=== PATIENT | male | born 1945 | race Caucasian/White ===

== ENCOUNTER 2018-10-30 13:07 | Inpatient (IN) | payer MEDICARE ==
[2018-10-30 14:28] LABS: #Basophils 0.1 thou/uL (0.0-0.2); #Eosinphils 0.1 thou/uL (0.0-0.7); #Lymphocytes 2.3 thou/uL (1.20-3.40); #Monocytes 0.6 thou/uL (0.11-0.59); #Neutrophils 4.8 thou/uL (1.40-6.50); %Basophils 0.7 % (0.0-1.0); %Eosinophils 1.3 % (0.0-10.0); %Lymphocytes 29.3 % (21.0-51.0); %Monocytes 7.9 % (0.0-10.0); %Neutrophils 60.8 % (42.0-75.0); Mean Corpuscular HGB CONC 34.6 g/dL (32.0-36.0); Mean Corpuscular Hemoglobin 33.1 pg (27.0-31.0); Mean Corpuscular Volume 95.7 fL (78.0-98.0); Mean Platelet Volume 8.9 fL (7.4-10.4); Platelet Count 188 thou/uL (130-400); RBC Distribution Width 12.6 % (11.5-14.5); Red Blood Cell (RBC) Count 3.92 mill/uL (4.70-6.10); White Blood Cell (WBC) Count 7.8 thou/uL (4.8-10.8)
--- NOTE | 2018-10-30 14:28 | RAD ---
CHEST 2 VIEWS: Date: 10/30/18 HISTORY: Acid reflux. Chest pain. COMPARISON: None. FINDINGS: There is some scarring in both lower lobes with increased peripheral pleural fat, likely chronic in n ature. Mild pulmonary venous congestion and cephalization of the pulmonary vasculature. Heart size is enlarged. Multiple midline sternotomy wires. Bones are demineralized with multiple Schmorl's nodes throughout the thoracic spine. There is cement throughout multiple lumbar spine compression deformities. IMPRESSION: Mild pulmonary venous congestion and cardiomegaly. POS: HOME
[2018-10-30 14:55] LABS: ALT (SGPT) 38 U/L (8-55); AST (SGOT) 23 U/L (5-34); Albumin 4.1 g/dL (3.4-4.8); Alkaline Phosphatase 52 U/L (40-150); Anion Gap 11 mmol/L (10-20); BUN (Urea Nitrogen) 17 mg/dL (8.4-25.7); Bilirubin, Total 0.4 mg/dL (0.2-1.2); Calc. Creatinine Clearance 0 mL/min (70-130); Carbon Dioxide 28 mmol/L (23-31); Chloride 106 mmol/L (98-107); Estimated GFR-MDRD 87; Globulin 2.5 g/dL (2.4-3.5); Glucose 90 mg/dL (83-110); Potassium 3.7 mmol/L (3.5-5.1); Protein, Total 6.6 g/dL (5.8-8.1); Sodium 141 mmol/L (136-145)
[2018-10-30] MEDS ORDERED: Aspirin 325 MG TAB ONE (15:16)
[2018-10-30] MEDS ORDERED: Enoxaparin Sodium 80 MG/0.8 ML SYRINGE ONE (15:16)
[2018-10-30] MEDS ORDERED: Nitroglycerin 2% Ointment 1 INCH/1 GM Packet ONE (15:16)
[2018-10-30 15:20] LABS: CKMB 2.9 ng/mL (0-6.6)
[2018-10-30 18:25] LABS: Critical Call Chem Troponin I RESULT DECREASING; Troponin I 0.352 ng/mL (< 0.028)
[2018-10-30 20:53] LABS: Troponin I 0.397 ng/mL (< 0.028)
[2018-10-30 20:55] VITALS: BMI 36.0
[2018-10-30] MEDS ORDERED: Aspirin 325 MG TAB PO SCH (21:00)
[2018-10-30] MEDS ORDERED: clonazePAM 1 MG TAB PO SCH (21:30)
[2018-10-30] MEDS ORDERED: DULoxetine 60 MG CAP PO SCH (21:30)
[2018-10-30] MEDS ORDERED: Nitroglycerin 2% Ointment 1 INCH/1 GM Packet TOP SCH (23:59)
[2018-10-31] MEDS ORDERED: Ondansetron ODT 4 MG TAB PO PRN (00:26)
[2018-10-31] MEDS ORDERED: Nitroglycerin 0.4 MG TAB (25 Tab Bottle) SL PRN ×2 (00:26)
[2018-10-31] MEDS ORDERED: traMADol HCl 50 MG TAB PO PRN (00:26)
[2018-10-31] MEDS ORDERED: hydrALAZINE 20 MG/ML VIAL SLOW IVP PRN (00:26)
[2018-10-31] MEDS ORDERED: Acetaminophen 500 MG TAB PO PRN (00:26)
[2018-10-31] MEDS ORDERED: Ondansetron PF 4 MG/2 ML Vial IVP PRN (00:26)
[2018-10-31] MEDS ORDERED: Calcium Carbonate 500 MG ChewTAB PO PRN (00:26)
[2018-10-31] MEDS ORDERED: Aspirin 325 mg Enteric Coated Tablet PO SCH (00:45)
--- NOTE | 2018-10-31 01:33 | HP ---
PRIMARY CARE PROVIDER: Arsenio Forte. CHIEF COMPLAINT: Reflux and burning in the chest. HISTORY OF PRESENT ILLNESS: This is a 73-year-old male, who presents to [facility] Emergency Department complaining of burning in his chest over the last 3 days. The patient denied any recent travel history, direct trauma or family members with similar symptoms. The patient does admit to history of reflux as well as arthritis, taking multiple pain medications in addition to nonsteroidal anti-inflammatory medication. The patient states this did not alleviate his symptoms and became concerned when the burning was constant. The patient also stated the pain in his chest was approximately 4/10, nonradiating without shortness of breath. The patient does admit to history of coronary artery disease, status post coronary artery bypass grafting in 2004. The patient admits to daily aspirin therapy and has been compliant with his regimen. The patient admits to some increased lower extremity swelling and general fatigue. In the emergency room, the patient underwent general metabolic screening showing evidence of elevated troponin I ranging between 0.352 to 0.397. The patient received aspirin 325 mg, Lovenox 1 mg/kg subcutaneously x1 dose, and transdermal nitroglycerin. The patient was transferred to the telemetry unit for further evaluation. PAST MEDICAL HISTORY: 1. Coronary artery disease. 2. Gastroesophageal reflux. 3. Peripheral neuropathy. 4. History of CVA with chronic expressive dysphasia. 5. Hyperlipidemia. 6. Hypertension. 7. HIV positive on chronic antiretroviral therapy. PAST SURGICAL HISTORY: 1. Status post coronary artery bypass grafting, 2004. 2. Status post appendectomy. CURRENT MEDICATIONS: 1. Abacavir/dolutegravir/lamivudine one tablet p.o. daily. 2. Acyclovir 1200 mg p.o. b.i.d. 3. Alendronate 35 mg p.o. q.7 days. 4. Amlodipine 10 mg p.o. daily. 5. Vitamin C 500 mg p.o. daily. 6. Enteric-coated aspirin 325 mg p.o. daily. 7. Dulcolax 5 mg p.o. daily. 8. Multivitamin 1 tablet p.o. daily. 9. Clonazepam 1 mg p.o. daily. 10. Diclofenac 75 mg p.o. b.i.d. 11. Cymbalta 60 mg p.o. b.i.d. 12. Fenofibrate 45 mg p.o. daily. 13. Gabapentin 3200 mg p.o. t.i.d. 14. Lisinopril 20 mg p.o. b.i.d. 15. Toprol-XL 100 mg p.o. b.i.d. 16. Minoxidil 10 mg p.o. daily. 17. Omeprazole 40 mg p.o. daily. 18. Flomax 0.4 mg p.o. daily. 19. Tramadol 50 mg p.o. t.i.d. p.r.n. ALLERGIES: TO STATINS AND SULFA. FAMILY HISTORY: Positive for hypertension and coronary artery disease. SOCIAL HISTORY: Resides in [facility] with his sister. Originally from [place]. No current alcohol, tobacco, or illicit drug use. Remote history of tobacco use. REVIEW OF SYSTEMS: CONSTITUTIONAL: Negative for weight loss or gain, ability to conduct usual activities. SKIN: Negative for rash, itching. EYES: Negative for double vision, pain. ENT/MOUTH: Negative for nose bleeding, neck stiffness, pain, tenderness. CARDIOVASCULAR: Negative for palpitations, dyspnea on exertion, orthopnea. RESPIRATORY: Negative for shortness of breath, wheezing, cough, hemoptysis, fever or night sweats. GASTROINTESTINAL: Negative for poor appetite, abdominal pain, heartburn, nausea, vomiting, constipation, or diarrhea. GENITOURINARY: Negative for urgency, frequency, dysuria, nocturia. MUSCULOSKELETAL: Negative for pain, swelling. NEUROLOGIC/PSYCHIATRIC: Negative for anxiety, depression. ALLERGY/IMMUNOLOGIC: Negative for skin rash, bleeding tendency. Otherwise negative except as stated per HPI. PHYSICAL EXAMINATION: VITAL SIGNS: On admission, blood pressure 188/97, pulse 91, respiratory rate 18, temperature 97.6 degrees Fahrenheit, O2 saturation 96% on room air. GENERAL APPEARANCE: This is a 73-year-old male, alert and oriented x3, pleasant, smiling, in no acute distress. HEENT: Pupils are equal, round, reactive to light and accommodation. Extraocular muscles are intact. No scleral icterus. No conjunctival injection. Nares patent. OP is clear. Teeth in fair repair. NECK: Supple. No cervical adenopathy. No thyromegaly. No carotid bruits. No JVD appreciated. Cervical spine with full active and passive range of motion. No meningeal signs noted. CHEST: Lungs are clear to auscultation bilaterally. CARDIOVASCULAR: S1-S2 without noted murmur, rub, or gallop. Previous coronary artery bypass grafting sternal scar intact. ABDOMEN: Rounded, soft, nontender, and nondistended. Bowel sounds are positive in all 4 quadrants. There is no hepatosplenomegaly. No abdominal bruits. No rebound or guarding appreciated. EXTREMITIES: Warm and dry with fair turgor. Mild pitting edema to the right lower extremity. Pulses palpable distally at the dorsalis pedis, posterior tibial, and popliteal arteries bilaterally. Capillary refill less than 2 seconds. NEUROLOGIC: Expressive dysphasia, mild. Not observed ambulatory during this exam. The rest of the cranial nerves 2 through 12 are grossly intact. PERTINENT LAB AND X-RAY FINDINGS: Complete metabolic profile within normal limits. Troponin I ranged between 0.352 to 0.397. BNP 162. CBC showed a white blood cell count of 7.8, hemoglobin 13, hematocrit 38, platelet count 188 with normal differential. Portable chest x-ray dated 10/30/2018, showed mild pulmonary venous vascular prominence. EKG dated 10/30/2018 by my interpretation shows sinus mechanism with heart rates in the 70s. Attenuated R-waves noted in the precordial leads. Normal axis. ST-T wave depression noted in leads V5 and V6. ASSESSMENT AND PLAN: 1. Non-ST elevation myocardial infarction. The patient will be admitted to the telemetry unit. Continue aspirin 325 mg daily. Lovenox initiated in the emergency room. Continue transdermal nitroglycerin. Check 2D transthoracic echocardiogram in the a.m. Consult Cardiology Service for further evaluation and consideration of left heart catheterization. Check fasting lipid profile in the a.m. 2. Coronary artery disease. See #1 above. 3. Hypertension. Resume home blood pressure regimen and monitor clinical response. P.r.n. hydralazine IV for systolic greater than or equal to 170. 4. Human immunodeficiency virus infection, chronic and stable. Resume anti-retroviral therapy. 5. Hyperlipidemia. Check fasting lipid profile in the a.m. Continue fenofibrate 45 mg p.o. daily. 6. Gastroesophageal reflux. Continue Pepcid 20 mg p.o. b.i.d. 7. Prophylaxis. SCDs while in bed. Pepcid 20 mg p.o. b.i.d. N.p.o. after midnight. 8. Code status is do not attempt resuscitation confirmed with the patient. Surrogate medical decision maker is the patient's sister. Job ID: [id number]
[2018-10-31 05:54] LABS: Anion Gap 11 mmol/L (10-20); BUN (Urea Nitrogen) 13 mg/dL (8.4-25.7); Calc. Creatinine Clearance 93 mL/min (70-130); Calcium 9.5 mg/dL (7.8-10.44); Carbon Dioxide 28 mmol/L (23-31); Chloride 105 mmol/L (98-107); Estimated GFR-MDRD 89; Glucose 124 mg/dL (83-110); Potassium 3.9 mmol/L (3.5-5.1); Sodium 140 mmol/L (136-145)
[2018-10-31 06:18] LABS: Eosinophils 1 % (0-10); Hemoglobin 13.3 g/dL (14.0-18.0); Hypochromia SLIGHT = 6-15 cells (100X) (0-5/hpf); Lymphocytes 21 % (21-51); MDiff Complete? YES; Mean Corpuscular HGB CONC 32.6 g/dL (32.0-36.0); Mean Corpuscular Hemoglobin 31.5 pg (27.0-31.0); Mean Corpuscular Volume 96.5 fL (78.0-98.0); Monocytes 4 % (0-10); Neutrophil 71 % (42-75); Platelet Count 203 thou/uL (130-400); Platelet Morphology Comment Appears Adequate; RBC Distribution Width 12.6 % (11.5-14.5); Reactive Lymphocytes 3 % (0-10); Red Blood Cell (RBC) Count 4.22 mill/uL (4.70-6.10); White Blood Cell (WBC) Count 7.4 thou/uL (4.8-10.8)
[2018-10-31] MEDS ORDERED: Clopidogrel Bisulfate 300 MG TAB PO SCH (09:00)
[2018-10-31] MEDS ORDERED: Prevnar 13-Val Conj/PF 0.5 ML SYRINGE IM ONE (09:00)
[2018-10-31] MEDS ORDERED: Fenofibrate 48 MG TAB PO SCH (09:00)
[2018-10-31] MEDS: clonazePAM 1 MG TAB PO SCH (09:12)
[2018-10-31] MEDS: Bisacodyl 5 MG TAB PO SCH (09:12)
[2018-10-31] MEDS: Amlodipine 10 MG TAB PO SCH (09:12)
[2018-10-31] MEDS: Tamsulosin HCl 0.4 MG CAP PO SCH (09:12)
[2018-10-31] MEDS: Aspirin 325 mg Enteric Coated Tablet PO SCH (09:12)
[2018-10-31] MEDS: Lisinopril 20 MG TAB PO SCH ×2 (09:13→20:19)
[2018-10-31] MEDS: Famotidine 20 MG TAB PO SCH ×2 (09:13→20:20)
[2018-10-31] MEDS: Ascorbic Acid 500 mg Chewable Tablet PO SCH (09:13)
--- NOTE | 2018-10-31 10:19 | CON ---
DATE OF CONSULTATION: 10/31/2018 REASON FOR CONSULTATION: Non-ST elevation myocardial infarction. HISTORY OF PRESENT ILLNESS: Mr. Rosales is a 73-year-old gentleman. The patient has a history of coronary artery bypass grafting in [place], he says in 2004. He does not know how many bypasses were done. The patient states he had stenting done prior to the bypass surgery that were unsuccessful he tells me. The patient came to the hospital here with chest pain at rest, found to have slight increase in cardiac enzymes as will be outlined below. He has continued to have chest pain off and on. The patient has also had a previous stroke, he tells me about five years ago he has expressive aphasia, which is not complete. He is able to express itself to some degree, but has quite a bit of difficulty. His receptive function appears adequate with conversing with him today. PAST MEDICAL HISTORY: Other past history, the patient states that he has history of HIV infection. He is on suppressive medicine for that. He says he has been on these medicines for now 30 years. SOCIAL HISTORY: He says he lives alone. His sister lives in town, but the patient tells me that he lives in apartment by himself. The patient does not use tobacco. ALLERGIES: HE REPORTS TO STATINS, SULFA, AND TRIMETHAPHAN. MEDICATIONS: At home he takes, 1. Aspirin. 2. He is not on statin. 3. He takes acyclovir. 4. Medicine for HIV. 5. Gabapentin, large doses. 6. Lisinopril 20 mg twice a day. 7. Minoxidil. 8. Fenofibrate 45 mg a day. REVIEW OF SYSTEMS: CONSTITUTIONAL: No significant weight gain or loss. VISION: No changes. HEARING: No changes. PULMONARY: No cough or wheezing. GASTROINTESTINAL: No nausea, vomiting, or diarrhea. SKIN: No rashes. NEUROLOGIC: No unilateral weakness or numbness. PSYCHIATRIC: No unusual depression or anxiety. HEMATOLOGIC: No unusual bruising. GENITOURINARY: No burning urination. PHYSICAL EXAMINATION: GENERAL: This is a pleasant 73-year-old gentleman, does look older than his age of 73. VITAL SIGNS: His blood pressure 157/82. Pulse 78 and it is regular. LUNGS: Clear. CARDIAC: Normal S1. Normal S2. I do not hear murmur, rub, or gallop. ABDOMEN: Soft and nontender. EXTREMITIES: Warm and dry. No clubbing or cyanosis. There is no edema. He has good popliteal pulses bilaterally. Good femoral pulses bilaterally. LABORATORY STUDIES: Hemoglobin is 13.3. Peak troponin was 0.397. Potassium is 3.9. Creatinine is 0.85. EKG, normal sinus rhythm, some nonspecific T-wave changes and ST changes in V5 and V6. Chest x-ray does not show evidence of congestive heart failure. ASSESSMENT: 1. Mje-UJ-ztrtwsrst myocardial infarction. 2. Bypass surgery, he tells me 14 years ago. He does not know how many bypasses were done. 3. Stent implantation prior to bypass surgery. 4. Previous stroke with expressive aphasia. He is able to communicate adequately, but does have some difficulty with speaking. He seems to understand well. 5. Chronic HIV infection. 6. Hypertension. 7. Hyperlipidemia. 8. Statin intolerance. PLAN: I had discussed cardiac catheterization. The patient states that he absolutely does not wish to have resuscitation in the event of cardiac arrest. I asked him if we decided to go to the medical laboratory technical officer, but he agreed to suspend that and at least resuscitate while in the medical laboratory technical officer, he says no. The patient wishes medical therapy; did discuss the option of catheterization, but he says that he does not wish to be resuscitated under any conditions. He is reluctant to consider cardiac catheterization. Therefore, we will try to treat him medically; 1. We will give him a short term of enoxaparin. 2. Add Plavix. 3. Nitrates. 4. Check lipids. 5. We will add amlodipine. 6. Echocardiogram to be done. We will follow with you. Job ID: [id number]
[2018-10-31] MEDS: Gabapentin 400 MG CAP PO SCH ×3 (10:43→20:17)
[2018-10-31] MEDS: Minoxidil 10 MG TAB PO SCH (10:44)
[2018-10-31] MEDS: LAMIVUDI PO SCH (10:45)
[2018-10-31] MEDS: DOLUTEGRAVIR PO SCH (10:45)
[2018-10-31] MEDS: Acyclovir 400 mg Tablet PO SCH ×2 (10:45→20:21)
[2018-10-31] MEDS: ABACAVIR PO SCH (10:45)
[2018-10-31] MEDS: Enoxaparin Sodium 80 MG/0.8 ML SYRINGE SC SCH ×2 (11:38→20:21)
[2018-10-31] MEDS: Nitroglycerin 2% Ointment 1 INCH/1 GM Packet TOP SCH ×2 (11:38→20:17)
[2018-10-31] MEDS: DULoxetine 60 MG CAP PO SCH ×2 (11:43→20:21)
--- NOTE | 2018-10-31 18:26 | PDOC.PN ---
- Subjective Encounter Start Date: 10/31/18 Encounter Start Time: 13:45 Feels fine. Says he has some "arthritis" pain in the sternum that is sore to touch. Otherwise feels fine. - Objective Resuscitation Status - Order Detail: 10/31/18 00:27 Resuscitation Status Routine Resuscitation Status: DNAR: NO Resuscitation Discussed with: Confirmed with patient Vital Signs & Weight: Vital Signs (12 hours) Temp Pulse Resp BP Pulse Ox 10/31/18 15:32 97.5 F L 74 20 176/91 H 95 10/31/18 12:00 98.6 F 83 17 159/73 H 94 L 10/31/18 09:12 78 10/31/18 07:50 97.8 F 78 18 157/82 H 92 L Weight Weight 184 lb 6.4 oz I&O: 10/30/18 10/31/18 11/01/18 06:59 06:59 06:59 Intake Total 420 Output Total 5 Balance 415 Result Diagrams: 10/31/18 05:11 10/31/18 05:11 Phys Exam - Physical Examination Constitutional: NAD Respiratory: no wheezing, no rales, no rhonchi Cardiovascular: RRR, no significant murmur, no rub Gastrointestinal: soft, non-tender, no distention, positive bowel sounds Musculoskeletal: no edema Neurological: non-focal Mild expressive aphasia, but communicative. Psychiatric: normal affect, A&O x 3 Dx/Plan (1) NSTEMI (non-ST elevated myocardial infarction) Code(s): I21.4 - NON-ST ELEVATION (NSTEMI) MYOCARDIAL INFARCTION Status: Acute (2) CAD (coronary artery disease) Code(s): I25.10 - ATHSCL HEART DISEASE OF [place] CORONARY ARTERY W/O ANG PCTRS Status: Acute (3) History of CVA (cerebrovascular accident) Code(s): Z86.73 - PRSNL HX OF TIA (TIA), AND CEREB INFRC W/O RESID DEFICITS Status: Acute (4) HIV (human immunodeficiency virus infection) Code(s): B20 - HUMAN IMMUNODEFICIENCY VIRUS [HIV] DISEASE Status: Acute (5) Hypertension Code(s): I10 - ESSENTIAL (PRIMARY) HYPERTENSION Status: Acute - Plan * Discussed with Dr. Suarez. * Patient is declining cath. * Says he has lived with HIV for over 30 years and has done well. Does not wish to do anything aggressive to prolong his life. * Continue medical management. * Lovenox, Plavix, Statin.
[2018-10-31] MEDS ORDERED: Ezetimibe 10 MG TAB PO SCH (21:00)
[2018-11-01 03:40] LABS: Calc. Creatinine Clearance 96 mL/min (70-130); Estimated GFR-MDRD Greater than 90
[2018-11-01 03:47] LABS: Hemoglobin 12.6 g/dL (14.0-18.0); Platelet Count 190 thou/uL (130-400)
[2018-11-01] MEDS: Nitroglycerin 2% Ointment 1 INCH/1 GM Packet TOP SCH ×2 (03:47→10:43)
[2018-11-01 04:00] LABS: Cardiac Risk 7.7 (Less than 4.5)
[2018-11-01] MEDS: Minoxidil 10 MG TAB PO SCH (08:51)
[2018-11-01] MEDS: Enoxaparin Sodium 80 MG/0.8 ML SYRINGE SC SCH (08:51)
[2018-11-01] MEDS: Acyclovir 400 mg Tablet PO SCH (08:51)
[2018-11-01] MEDS: DULoxetine 60 MG CAP PO SCH (08:51)
[2018-11-01] MEDS: Famotidine 20 MG TAB PO SCH (08:52)
[2018-11-01] MEDS: Tamsulosin HCl 0.4 MG CAP PO SCH (08:52)
[2018-11-01] MEDS: Ascorbic Acid 500 mg Chewable Tablet PO SCH (08:52)
[2018-11-01] MEDS: Amlodipine 10 MG TAB PO SCH (08:52)
[2018-11-01] MEDS: Lisinopril 20 MG TAB PO SCH (08:52)
[2018-11-01] MEDS: clonazePAM 1 MG TAB PO SCH (08:52)
[2018-11-01] MEDS: Aspirin 325 mg Enteric Coated Tablet PO SCH (08:53)
[2018-11-01] MEDS: Gabapentin 400 MG CAP PO SCH (08:53)
[2018-11-01] MEDS: Bisacodyl 5 MG TAB PO SCH (08:53)
[2018-11-01] MEDS ORDERED: Clopidogrel Bisulfate 75 MG TAB PO SCH (09:00)
--- NOTE | 2018-11-01 10:07 | PRG ---
DATE OF SERVICE: 11/01/2018 SUBJECTIVE: Mr. Rosales is doing well. No further chest pain. OBJECTIVE: VITAL SIGNS: Blood pressure 142/66, followed by 170/76. LUNGS: Clear. CARDIAC: Normal S1 and normal S2. ABDOMEN: Soft and nontender. IMAGING STUDIES: Echocardiogram technically difficult, ejection fraction approximately 40% to 45%. ASSESSMENT: 1. Previous bypass surgery. 2. Human immunodeficiency virus positive, on suppressive medications. 3. Status post [id number] myocardial infarction. PLAN: 1. The patient wishes do not resuscitate status. Does not wish to have any maneuvers to prolong his life in the event of cardiac arrest. 2. Client's cardiac catheterization planned to go on aspirin. 3. Plavix 75 mg a day. 4. Try again with Crestor. He previously had muscle weakness, but we will try 5 mg a day and stop the fenofibrate. 5. Come back and see us in the office in 2 to 3 weeks. Bring all medications. Job ID: [id number]
[2018-11-01] MEDS: ABACAVIR PO SCH (10:15)
[2018-11-01] MEDS: DOLUTEGRAVIR PO SCH (10:15)
[2018-11-01] MEDS: LAMIVUDI PO SCH (10:15)
[2018-11-01 11:58] VITALS: BP 119/59; TEMP 98
--- NOTE | 2018-11-02 00:12 | DIS ---
DATE OF ADMISSION: 10/30/2018 DATE OF DISCHARGE: 11/01/2018 DISCHARGE DIAGNOSES: 1. Non ST-elevation myocardial infarction. 2. Coronary artery disease. 3. History of cerebrovascular accident. 4. HIV positivity. 5. Hypertension. HISTORY OF PRESENT ILLNESS: The patient is a 73-year-old male, who presented via the emergency department with the complaint of left-sided chest pain. The patient was known to have prior cardiac history with stents and then bypass surgery. He had slightly elevated troponin and some nonspecific T-wave changes and ST changes in V5 and V6. HOSPITAL COURSE: The patient was admitted to the hospital on telemetry. He was continued on aspirin. He had Lovenox initiated in the emergency department along with some transdermal nitroglycerin. Cardiology was consulted and echocardiogram was performed. The echocardiogram ultimately showed suboptimal study with an EF around 40% to 50%. There was [id number] dilatation of the left atrium. Dr. Suarez saw the patient in consultation, recommended heart catheterization. However, the patient declined, indicated that he had been living with chronic HIV for over 30 years, had been through a number of cardiac procedures and had a prior CVA with some mild expressive aphasia and was not interested in pursuing anything further at this time. Therefore, he had Plavix added to his regimen and was continued on the nitrates. The patient appeared to have some tenderness in the left chest area which he attributed to arthritis, but otherwise no new problems and felt generally well. Vital signs remained relatively stable. His blood pressure was somewhat erratic and never got exceedingly high. With that, the patient was felt to be stable for discharge to home. His peak troponin was 0.397. Also of note, the patient did have cholesterol panel which included triglycerides of 309, total cholesterol of 245 , LDL 151, and HDL 32. The patient was noted to be allergic to statins, which apparently did cause some myositis. However, Cardiology felt it would be worth giving him a trial on low-dose Crestor given his underlying NH, his coronary disease and his cholesterol panel, noting that the brakes were not found to be of benefit for coronary artery disease. PHYSICAL EXAMINATION: VITAL SIGNS: On the day of discharge, temperature is 98.0, pulse 75, respirations 16, O2 saturation 95% on room air, BP was 119/59. GENERAL: The patient was awake and alert, very pleasant, cooperative. HEART: Regular rate and rhythm without murmurs. LUNGS: Clear. ABDOMEN: Benign. EXTREMITIES: Had no cyanosis, clubbing, or edema. DISPOSITION: The patient is discharged in stable condition to home. DIET: He is to have a heart healthy diet. ACTIVITY: Activity level is as tolerated. MEDICATIONS: He will be on Plavix 75 mg daily, rosuvastatin 5 mg at bedtime, gabapentin continues home dose. He was on omeprazole previously. However, given the potential interaction with Plavix, I did clarify subsequent to discharge to the patient's sister that we will hold the omeprazole for now and have him on Pepcid. He will continue his: 1. Diclofenac. 2. Misoprostol. 3. Tramadol. 4. Dulcolax. 5. Aspirin, but he will reduce the dose to 81 mg for now. Continue with, 1. Vitamin C. 2. Cymbalta. 3. Calcium. 4. Tamsulosin. 5. Alendronate. 6. Clonazepam. 7. Minoxidil. 8. Metoprolol. 9. Lisinopril. 10. Amlodipine 10 mg daily has been added. 11. I will continue the Triumeq and acyclovir. FOLLOWUP: He is to follow up with Dr. Nat Olivia on 11/07/2018 at 12:45. He will follow up with Dr. Suarez on 11/15/2018 at 9:30 a.m. The patient can return to the hospital should he have any problems prior to that time. Time spent in discharge activities, including face to face time with the patient , was 33 min. Job ID: [id number] [facility]
[2018-11-02] MEDS ORDERED: Aspirin 325 mg Enteric Coated Tablet PO SCH (09:00)
[2018-11-02] MEDS ORDERED: Enoxaparin Sodium 40 MG/0.4 ML SYRINGE SC SCH (09:00)
--- NOTE | 2018-11-02 13:04 | EKG ---
Test Reason : Blood Pressure : / mmHG Vent. Rate : 074 BPM Atrial Rate : 074 BPM P-R Int : 148 ms QRS Dur : 098 ms QT Int : 398 ms P-R-T Axes : 046 012 116 degrees QTc Int : 441 ms Normal sinus rhythm Left atrial enlargement Cannot rule out Anterior infarct , age undetermined Abnormal ECG Confirmed by TRISHA PORTILLO, MELISSA Lala ([id number]), newspaper copy editor BUFFY TURPIN ([id number]) on 11/02/2018 1:03:47 PM Referred By: Confirmed By:MELISSA RICO MD
[2018-11-02] MEDS ORDERED: Rosuvastatin 5 MG TAB PO SCH (21:00)
== END 2018-11-01 13:32 | disposition home or self-care (01) | DRG 282 ==
LOC: ERS 13:07 → 2NO 17:16
PROVIDERS: ADMIT Internal Medicine; ATTEND Internal Medicine
DX: I21.4 Non-ST elevation (NSTEMI) myocardial infarction (principal); I25.10 Atherosclerotic heart disease of native coronary artery without angina pectoris; Z21 Asymptomatic human immunodeficiency virus [HIV] infection status; K21.9 Gastro-esophageal reflux disease without esophagitis; G62.9 Polyneuropathy, unspecified; M19.90 Unspecified osteoarthritis, unspecified site; E78.5 Hyperlipidemia, unspecified; I10 Essential (primary) hypertension; Z66 Do not resuscitate; M60.9 Myositis, unspecified; I69.321 Dysphasia following cerebral infarction; Z95.1 Presence of aortocoronary bypass graft; Z79.01 Long term (current) use of anticoagulants
CPT/HCPCS: 36415; 71046; 80048; 80053; 80061; 82553; 82565; 83880; 84484; 85007; 85014; 85018; 85025; 85027; 85049; 90471; 90670; 93005; 93306; 93798; 94760; 96372; G0009; J1650

== ENCOUNTER 2018-12-30 10:14 | Inpatient (IN) | payer MEDICARE ==
[2018-12-30 11:03] LABS: #Eosinphils 0.1 thou/uL (0.0-0.7); #Lymphocytes 1.8 thou/uL (1.20-3.40); #Monocytes 0.6 thou/uL (0.11-0.59); #Neutrophils 6.8 thou/uL (1.40-6.50); %Basophils 0.1 % (0.0-1.0); %Eosinophils 0.5 % (0.0-10.0); %Lymphocytes 19.3 % (21.0-51.0); Hemoglobin 13.3 g/dL (14.0-18.0); Mean Corpuscular HGB CONC 34.6 g/dL (32.0-36.0); Mean Corpuscular Hemoglobin 32.9 pg (27.0-31.0); Mean Corpuscular Volume 95.2 fL (78.0-98.0); Mean Platelet Volume 9.2 fL (7.4-10.4); Platelet Count 182 thou/uL (130-400); RBC Distribution Width 12.7 % (11.5-14.5); Red Blood Cell (RBC) Count 4.03 mill/uL (4.70-6.10); White Blood Cell (WBC) Count 9.1 thou/uL (4.8-10.8)
--- NOTE | 2018-12-30 11:17 | RAD ---
PA AND LATERAL CHEST: Date: 12/30/18 COMPARISON: 10/30/18 study. HISTORY: Chest pain. FINDINGS: Heart size within normal limits. There are postop sternotomy changes. Lungs show some chronic change. No focal infiltrates. Vertebroplasty changes of the lumbar spine are incidentally noted. IMPRESSION: Chronic lung change. No acute process. POS: OFF
[2018-12-30 11:30] LABS: ALT (SGPT) 34 U/L (8-55); AST (SGOT) 31 U/L (5-34); Albumin 4.3 g/dL (3.4-4.8); Alkaline Phosphatase 54 U/L (40-150); Anion Gap 14 mmol/L (10-20); BUN (Urea Nitrogen) 15 mg/dL (8.4-25.7); Bilirubin, Total 0.5 mg/dL (0.2-1.2); CK (CPK) 576 U/L (30-200); Calc. Creatinine Clearance 0 mL/min (70-130); Calcium 9.9 mg/dL (7.8-10.44); Carbon Dioxide 26 mmol/L (23-31); Chloride 105 mmol/L (98-107); Estimated GFR-MDRD 68; Globulin 2.5 g/dL (2.4-3.5); Glucose 143 mg/dL (83-110); Potassium 3.7 mmol/L (3.5-5.1); Protein, Total 6.8 g/dL (5.8-8.1); Sodium 141 mmol/L (136-145)
[2018-12-30 11:52] LABS: CKMB 9.5 ng/mL (0-6.6)
[2018-12-30] MEDS ORDERED: Aspirin Chewable 81 MG TAB ONE (12:22)
[2018-12-30] MEDS ORDERED: Nitroglycerin 2% Ointment 1 INCH/1 GM Packet ONE (12:22)
[2018-12-30 12:56] LABS: Prothrombin Time 13.2 SEC (12.0-14.7)
[2018-12-30] MEDS ORDERED: Heparin 25,000 units/D5W 500 ML IV SCH (13:00)
[2018-12-30] MEDS ORDERED: Heparin 10,000 UNITS/ 10 ML VIAL SLOW IVP SCH (13:00)
[2018-12-30] MEDS ORDERED: Enoxaparin Sodium 80 MG/0.8 ML SYRINGE ONE (13:52)
[2018-12-30 14:16] LABS: Troponin I 0.271 ng/mL (< 0.028)
[2018-12-30] MEDS ORDERED: Communication Order-Pharmacy FS SCH (15:30)
[2018-12-30 15:41] VITALS: BMI 27.9
[2018-12-30 17:10] LABS: Troponin I 0.275 ng/mL (< 0.028)
[2018-12-30] MEDS ORDERED: traMADol HCl 50 MG TAB PO PRN (18:38)
--- NOTE | 2018-12-30 18:45 | CON ---
DATE OF CONSULTATION: 12/30/2018 HISTORY OF PRESENT ILLNESS: The patient is a 73-year-old gentleman, who presents for evaluation of chest discomfort. The patient has a previous history of coronary artery disease. He underwent coronary artery bypass graft surgery in 2004. The patient also has a history of cerebrovascular accident. The patient was admitted with unstable angina in October of this year. The patient declined to undergo an invasive evaluation and was placed on medical therapy. He was doing well until a few days ago when he developed recurrent chest discomfort. He has been using nitroglycerin tablets to relieve his chest discomfort. He presented to the emergency room for further evaluation. The patient denies having any present chest discomfort. PAST MEDICAL HISTORY: Significant for; 1. Coronary artery disease. 2. Cerebrovascular accident. 3. Hypertension. 4. Dyslipidemia. PAST SURGICAL HISTORY: He has had; 1. Coronary artery bypass surgery. 2. Appendectomy. 3. Tonsillectomy. SOCIAL HISTORY: Nonsmoker. ALLERGIES: HE IS ALLERGIC TO SULFA DRUGS. MEDICATIONS: See nursing list. FAMILY HISTORY: Positive family history of coronary artery disease. REVIEW OF SYSTEMS: Ten-point system otherwise unremarkable. PHYSICAL EXAMINATION: GENERAL: Well-developed gentleman, in no acute distress. VITAL SIGNS: Blood pressure was 168/85. NECK: No jugular venous distention. LUNGS: Clear to auscultation. HEART: Regular rate and rhythm. Normal S1, S2. No murmurs. ABDOMEN: Nondistended. EXTREMITIES: Showed no edema. VASCULAR: Radial pulses are 2+. LABORATORY AND DIAGNOSTIC RESULTS: White blood cell count 9.1, hemoglobin 13.3, hematocrit 38.4, platelets 182. Sodium is 141, potassium 3.7, chloride 105, bicarbonate 26, BUN 15, creatinine 1.0. Troponin was 0.271. EKG revealed normal sinus rhythm with ST-T wave abnormalities suggestive of possible ischemia. IMPRESSION AND PLAN: 1. Unstable angina. 2. History of coronary artery bypass surgery. 3. History of cerebrovascular accident. 4. HIV positive. 5. Dyslipidemia. 6. Hypertension. This gentleman presents with unstable angina. The patient has received a dose of Lovenox. The patient will be scheduled to undergo a cardiac catheterization tomorrow. The risks involved with the procedure including KS, bleeding, stroke, cardiac arrhythmia, and cardiac were explained to the patient. The patient understands these risks and wishes to proceed. Job ID: [id number]
[2018-12-30] MEDS: DULoxetine 60 MG CAP PO SCH (20:14)
[2018-12-30] MEDS: Rosuvastatin 5 MG TAB PO SCH (20:14)
[2018-12-30] MEDS: Minoxidil 2.5 MG TAB PO SCH (20:15)
[2018-12-30] MEDS: Lisinopril 20 MG TAB PO SCH (20:15)
[2018-12-30] MEDS: Acyclovir 400 mg Tablet PO SCH (20:15)
--- NOTE | 2018-12-30 20:40 | PDOC.EVN ---
Event Note - Event Note Event Note: Pharmacy called to discuss patient's gabapentin dose. Confirmed that he takes 3200 mg TID; will continue at this time, given risk of seizure / withdrawal symptoms.
[2018-12-30] MEDS ORDERED: Gabapentin 400 MG CAP PO SCH (21:00)
--- NOTE | 2018-12-30 22:43 | HP ---
PRIMARY CARE PHYSICIAN: Dr. Nat Olivia CHIEF COMPLAINT: Chest pain. HISTORY OF PRESENT ILLNESS: Mr. Rosales is a 73-year-old man with past medical history of CVA and coronary artery disease, status post CABG in 2015, hypertension, hyperlipidemia, who had presented to [facility] earlier today after he has been having worsening chest pain. This started about 4 days ago. He had also reported some diaphoresis and shortness of breath, which symptoms were relieved by nitroglycerin. His serial troponins were trended and found to be indeterminate at 0.27 and CK-MB elevated at 9.5. The patient was treated with nitroglycerin, aspirin and Lovenox in the ED, which had helped the symptoms. Cardiology Services were then consulted and planned for heart catheterization in the morning. Currently, the patient denies fever, chills, headache, blurred vision, dizziness, chest pain, palpitation, shortness of breath, abdominal pain, nausea, vomiting, or any change in his stool. REVIEW OF SYSTEMS: All other systems reviewed and found to be negative unless mentioned in HPI. PAST MEDICAL HISTORY: Hypertension, hyperlipidemia, coronary artery disease, history of CVA, and HIV. PAST SURGICAL HISTORY: Coronary artery bypass graft surgery, appendectomy. PSYCHIATRIC HISTORY: None. SOCIAL HISTORY: Denies alcohol, tobacco, or illicit drug use. He is a former smoker and quit more than 10 years ago. KNOWN ALLERGIES: Statin and sulfa. CURRENT HOME MEDICATIONS: 1. Triumeq one tablet oral daily. 2. Acyclovir 400 mg p.o. b.i.d. 3. Alendronate 35 mg p.o. q.7 days. 4. Amlodipine 10 mg oral daily. 5. Aspirin 81 mg daily. 6. Dulcolax 5 mg oral daily. 7. Clonazepam 1 mg p.o. daily. 8. Clopidogrel 75 mg oral daily. 9. Diclofenac 75 mg oral b.i.d. 10. Duloxetine 60 mg oral b.i.d. 11. Gabapentin 3200 mg p.o. t.i.d. 12. Lisinopril 20 mg oral b.i.d. 13. Metoprolol 100 mg oral b.i.d. 14. Minoxidil 2.5 mg p.o. b.i.d. 15. Rosuvastatin 5 mg oral at bedtime. 16. Tamsulosin 0.4 mg daily. 17. Tramadol 50 mg p.o. t.i.d. PHYSICAL EXAMINATION: VITAL SIGNS: BP 157/76, pulse 70, respiration 18, temperature 98.9, O2 saturation 95% on room air. GENERAL: The patient is awake, alert, and oriented x3, currently lying comfortably in bed and in no acute distress. HEENT: Atraumatic, normocephalic. Pupils are round and reactive to light. Extraocular muscles intact. Moist mucous membranes noted. NECK: Soft and supple. Trachea midline. CARDIOVASCULAR: Positive S1 and S2. Regular rate and rhythm. No murmur auscultated. RESPIRATORY: Clear to auscultation bilaterally. No wheezes, rales, or rhonchi. ABDOMEN: Soft, nontender. Bowel sounds present. MUSCULOSKELETAL: Strength 5+ bilateral upper and lower extremities. Moves all extremities equal. Pedal and radial pulses 2+ bilaterally. No edema noted. NEUROLOGIC: Cranial nerves 2 through 12 grossly intact. No focal deficits noted. Speech intact and normal. Gait not assessed. SKIN: Warm, dry, and intact. No rashes. No ulceration noted. PSYCHIATRIC: Good mood and affect. LABORATORY DATA: WBC 9.1, RBC 4.03, hemoglobin 13.3, hematocrit 38.4, platelet 182. Sodium 141, potassium 3.7, anion gap 14, BUN 15, creatinine 1.07, estimated GFR 68, glucose 143, CK-MB 9.5, troponin 0.278 to 0.275. DIAGNOSTIC IMAGING: Two-view chest x-ray showed chronic lung changes with no acute process noted. ASSESSMENT AND PLAN: 1. Unstable angina. The patient was treated with Lovenox, aspirin and nitroglycerin, which had helped with the symptoms. He will be maintained on nitroglycerin as needed and Cardiology consult as we planned for cardiac catheterization in the a.m. 2. Hypertension. Continue home regimen and monitor blood pressure and other vital signs closely. 3. Hyperlipidemia. Continue home statin. 4. History of coronary artery disease, status post coronary artery bypass graft. As above, cardiology is consulted and we will plan for cardiac catheterization in the morning. 5. History of human immunodeficiency virus. Continue home regimen. 6. Deep venous thrombosis and gastrointestinal prophylaxis. 7. Code status, full code. DISPOSITION: Pending further workup and clinical findings. Surrogate decision maker is his sister, Katerina Leary. Job ID: [id number]
[2018-12-31] MEDS: Lisinopril 20 MG TAB PO SCH ×2 (06:00→20:30)
[2018-12-31] MEDS: Amlodipine 10 MG TAB PO SCH (06:00)
[2018-12-31] MEDS: Tamsulosin HCl 0.4 MG CAP PO SCH (06:00)
[2018-12-31] MEDS: DULoxetine 60 MG CAP PO SCH ×2 (06:00→20:30)
[2018-12-31] MEDS: DOLUTEGRAVIR PO SCH (06:01)
[2018-12-31] MEDS: LAMIVUDI PO SCH (06:01)
[2018-12-31] MEDS: clonazePAM 1 MG TAB PO SCH (06:01)
[2018-12-31] MEDS: Aspirin 81 mg Enteric Coated Tablet PO SCH (06:01)
[2018-12-31] MEDS: Minoxidil 2.5 MG TAB PO SCH ×2 (06:01→20:30)
[2018-12-31] MEDS: ABACAVIR PO SCH (06:01)
[2018-12-31] MEDS: Acyclovir 400 mg Tablet PO SCH ×2 (06:02→20:30)
[2018-12-31] MEDS ORDERED: Lidocaine 1% (PF) 30 ML VIAL ONE (06:34)
[2018-12-31] MEDS ORDERED: Gabapentin 300 MG CAP PO SCH (09:00)
[2018-12-31] MEDS ORDERED: Midazolam HCl 2 mg/2 ml Vial ONE (09:03)
[2018-12-31] MEDS ORDERED: Fentanyl 100 MCG/2 ML VIAL ONE (09:03)
[2018-12-31] MEDS ORDERED: Nitroglycerin 4.9 GM Bottle ONE (10:12)
[2018-12-31] MEDS ORDERED: TICAGRELOR 90 MG TABLET ONE (10:25)
[2018-12-31] MEDS ORDERED: Nitroglycerin 2% Ointment 1 INCH/1 GM Packet ONE (10:30)
[2018-12-31] MEDS ORDERED: Sodium Chloride 0.9% 200 ML IV PRN (10:31)
[2018-12-31] MEDS ORDERED: Nitroglycerin 0.4 MG TAB (25 Tab Bottle) SL PRN (10:31)
[2018-12-31] MEDS ORDERED: Acetaminophen/Codeine 30-300mg Tablet PO PRN ×2 (10:31)
--- NOTE | 2018-12-31 12:36 | PDOC.HOSPP ---
- Subjective Encounter Date: 12/31/18 Encounter Time: 11:00 Subjective: had cath this am, no current chest pain sister at bedside - Objective Vital Signs & Weight: Vital Signs (12 hours) Temp Pulse Resp BP BP BP Pulse Ox 12/31/18 12:00 98.1 F 60 18 110/59 L 93 L 12/31/18 10:31 98.4 F 63 16 113/58 L 96 12/31/18 08:00 98.7 F 65 16 127/60 98 12/31/18 06:00 86 161/79 H 12/31/18 04:00 98 F 86 18 161/79 H 93 L Weight Weight 177 lb 12.8 oz I&O: 12/30/18 12/31/18 01/01/19 06:59 06:59 06:59 Intake Total 360 240 Balance 360 240 Result Diagrams: 12/30/18 10:31 12/30/18 10:31 Hospitalist ROS - Medication Medications: Active Medications Generic Name Dose Route Start Last Admin Trade Name Freq PRN Reason Stop Dose Admin Acyclovir 400 mg 12/30/18 21:00 12/31/18 06:02 Zovirax PO 400 mg BID VAL Administration Amlodipine Besylate 10 mg 12/31/18 09:00 12/31/18 06:00 Norvasc PO 10 mg DAILY VAL Administration Aspirin 81 mg 12/31/18 09:00 12/31/18 06:01 Ecotrin PO 81 mg DAILY VAL Administration Clonazepam 1 mg 12/31/18 09:00 12/31/18 06:01 Klonopin PO 1 mg DAILY VAL Administration Duloxetine HCl 60 mg 12/30/18 21:00 12/31/18 06:00 Cymbalta PO 60 mg BID VAL Administration Lisinopril 20 mg 12/30/18 21:00 12/31/18 06:00 Zestril PO 20 mg BID VAL Administration Metoprolol Succinate 100 mg 12/30/18 21:00 12/31/18 06:00 Toprol Xl PO 100 mg BID VAL Administration Minoxidil 2.5 mg 12/30/18 21:00 12/31/18 06:01 Minoxidil PO 2.5 mg BID VAL Administration (Abacavir/ 1 each 12/31/18 09:00 12/31/18 06:01 Dolutegravir/ PO 1 each Lamivudi [Triumeq] 1 DAILY VAL Administration Tablet) Rosuvastatin Calcium 5 mg 12/30/18 21:00 12/30/18 20:14 Crestor PO 5 mg HS VAL Administration Tamsulosin HCl 0.4 mg 12/31/18 09:00 12/31/18 06:00 Flomax PO 0.4 mg DAILY VAL Administration - Exam General Appearance: awake alert Eye: PERRL, anicteric sclera ENT: no oropharyngeal lesions, moist mucosa Neck: supple, no JVD Heart: RRR, no murmur Respiratory: no wheezes, no rales Gastrointestinal: soft, non-tender, normal bowel sounds Extremities: no cyanosis, no edema Neurological: cranial nerve grossly intact, no focal deficits Psychiatric: normal affect, A&O x 3 Hosp A/P (1) Unstable angina Status: Acute (2) CAD (coronary artery disease) Code(s): I25.10 - ATHSCL HEART DISEASE OF [place] CORONARY ARTERY W/O ANG PCTRS Status: Acute Qualifiers: [place] vs. transplanted heart: [place] heart Associated angina: with unstable angina (3) Dyslipidemia Code(s): E78.5 - HYPERLIPIDEMIA, UNSPECIFIED Status: Chronic (4) HIV (human immunodeficiency virus infection) Code(s): B20 - HUMAN IMMUNODEFICIENCY VIRUS [HIV] DISEASE Status: Chronic Qualifiers: HIV symptom status: asymptomatic Qualified Code(s): Z21 - Asymptomatic human immunodeficiency virus [HIV] infection status (5) History of CVA (cerebrovascular accident) Code(s): Z86.73 - PRSNL HX OF TIA (TIA), AND CEREB INFRC W/O RESID DEFICITS Status: Chronic (6) Hypertension Code(s): I10 - ESSENTIAL (PRIMARY) HYPERTENSION Status: Chronic Qualifiers: Hypertension type: essential hypertension Qualified Code(s): I10 - Essential (primary) hypertension - Plan had cath this am, shows diffuse disease, d/w , for med mgmt meds will be optimized, tika currently on toprol xl, lisinopril, crestor low dose, norvasc, stepan is on very high toxic dose of gabapentin which is prescribed by his ID specialist per sister has severe peripheral neuropathy which apparently has not responded to other agents per sister hemostable dc plan in am has given updates to sister and patient about cath results
[2018-12-31] MEDS: Bisacodyl 5 MG TAB PO SCH (13:44)
[2018-12-31] MEDS ORDERED: Iopamidol 370 76% 100 ML VIAL ONE (15:58)
[2018-12-31] MEDS ORDERED: Iopamidol 370 76% 50 ML VIAL FS ONE (15:58)
[2018-12-31] MEDS: Gabapentin 400 MG CAP PO SCH ×2 (16:38→20:30)
[2018-12-31] MEDS: Rosuvastatin 5 MG TAB PO SCH (20:30)
[2018-12-31] MEDS: TICAGRELOR 90 MG TABLET PO SCH (20:30)
[2019-01-01] MEDS: Aspirin 81 mg Enteric Coated Tablet PO SCH (09:22)
[2019-01-01] MEDS: Amlodipine 10 MG TAB PO SCH (09:22)
[2019-01-01] MEDS: Acyclovir 400 mg Tablet PO SCH (09:22)
[2019-01-01] MEDS: DULoxetine 60 MG CAP PO SCH (09:22)
[2019-01-01] MEDS: Gabapentin 400 MG CAP PO SCH (09:22)
[2019-01-01] MEDS: clonazePAM 1 MG TAB PO SCH (09:22)
[2019-01-01] MEDS: LAMIVUDI PO SCH (09:23)
[2019-01-01] MEDS: Minoxidil 2.5 MG TAB PO SCH (09:23)
[2019-01-01] MEDS: Tamsulosin HCl 0.4 MG CAP PO SCH (09:23)
[2019-01-01] MEDS: Lisinopril 20 MG TAB PO SCH (09:23)
[2019-01-01] MEDS: DOLUTEGRAVIR PO SCH (09:23)
[2019-01-01] MEDS: ABACAVIR PO SCH (09:23)
[2019-01-01] MEDS: TICAGRELOR 90 MG TABLET PO SCH (09:23)
[2019-01-01] MEDS: Bisacodyl 5 MG TAB PO SCH (09:24)
[2019-01-01 12:28] VITALS: BP 118/64; TEMP 98
[2019-01-06] MEDS ORDERED: Non-Formulary Item 1 EACH (Alendronate Sodium [Alendronate Sodium] 35 MG) PO SCH (09:00)
== END 2019-01-01 13:40 | disposition home or self-care (01) | DRG 287 ==
LOC: ERS 10:14 → ERHOLD 12:58 → 2NO 15:18
PROVIDERS: ADMIT Internal Medicine Nephrology; ATTEND Internal Medicine Nephrology
PROC: 4A023N7 Measurement of Cardiac Sampling and Pressure, Left Heart, Percutaneous Approach (ICD-10-PCS; principal; 2018-12-30)
PROC: B2111ZZ Fluoroscopy of Multiple Coronary Arteries using Low Osmolar Contrast (ICD-10-PCS; 2018-12-30)
PROC: B2151ZZ Fluoroscopy of Left Heart using Low Osmolar Contrast (ICD-10-PCS; 2018-12-30)
DX: I25.110 Atherosclerotic heart disease of native coronary artery with unstable angina pectoris (principal); Z86.73 Personal history of transient ischemic attack (TIA), and cerebral infarction without residual deficits; Z95.1 Presence of aortocoronary bypass graft; E78.5 Hyperlipidemia, unspecified; Z21 Asymptomatic human immunodeficiency virus [HIV] infection status; Z88.8 Allergy status to other drugs, medicaments and biological substances; Z88.2 Allergy status to sulfonamides; Z90.49 Acquired absence of other specified parts of digestive tract; Z79.82 Long term (current) use of aspirin; Z79.899 Other long term (current) drug therapy
CPT/HCPCS: 36415; 71046; 76942; 80053; 82550; 82553; 84484; 85025; 85610; 93005; 93458; 94760; 96372; 99152; 99153; C1769; J1644; J1650; J2001; J2250; J3010

== ENCOUNTER 2019-01-17 18:20 | Inpatient (IN) | payer MEDICARE ==
[2019-01-17] MEDS ORDERED: Heparin 1,000 UNITS/ML VIAL ONE (18:32)
[2019-01-17] MEDS ORDERED: Heparin 25,000 units/D5W 500 ML ONE (18:32)
[2019-01-17] MEDS ORDERED: Nitroglycerin 50 MG/250 ML BOT 250 ML ONE (18:40)
[2019-01-17 18:41] LABS: #Eosinphils 0.1 thou/uL (0.0-0.7); #Lymphocytes 1.7 thou/uL (1.20-3.40); #Monocytes 0.6 thou/uL (0.11-0.59); %Basophils 0.4 % (0.0-1.0); %Eosinophils 0.6 % (0.0-10.0); %Lymphocytes 16.6 % (21.0-51.0); %Monocytes 5.9 % (0.0-10.0); %Neutrophils 76.4 % (42.0-75.0); Hemoglobin 14.6 g/dL (14.0-18.0); Mean Corpuscular HGB CONC 33.5 g/dL (32.0-36.0); Mean Corpuscular Hemoglobin 32.8 pg (27.0-31.0); Mean Corpuscular Volume 97.9 fL (78.0-98.0); Mean Platelet Volume 8.8 fL (7.4-10.4); Platelet Count 219 thou/uL (130-400); RBC Distribution Width 12.7 % (11.5-14.5); Red Blood Cell (RBC) Count 4.44 mill/uL (4.70-6.10); White Blood Cell (WBC) Count 10.4 thou/uL (4.8-10.8)
[2019-01-17 18:44] LABS: INR-International Normal Ratio 0.9; PTT 24.3 SEC (22.9-36.1)
--- NOTE | 2019-01-17 18:48 | RAD ---
EXAM: Portable chest INDICATIONS: Chest pain. STEMI COMPARISON: 12/30/2018 FINDINGS: Borderline cardiomegaly with postop sternotomy change. Vascular congestion. Mild perihilar haziness suggesting edema. No significant effusion. IMPRESSION: Mild vascular congestion and perihilar haziness suggesting edema. Other infiltrate not ex cluded.
[2019-01-17 18:58] LABS: ALT (SGPT) 122 U/L (8-55); AST (SGOT) 152 U/L (5-34); Albumin 4.3 g/dL (3.4-4.8); Alkaline Phosphatase 63 U/L (40-110); Anion Gap 16 mmol/L (10-20); BUN (Urea Nitrogen) 19 mg/dL (8.4-25.7); Bilirubin, Total 0.3 mg/dL (0.2-1.2); Calc. Creatinine Clearance 0 mL/min (70-130); Calcium 9.3 mg/dL (7.8-10.44); Carbon Dioxide 21 mmol/L (23-31); Chloride 108 mmol/L (98-107); Estimated GFR-MDRD 63; Globulin 3.2 g/dL (2.4-3.5); Glucose 169 mg/dL (83-110); Protein, Total 7.5 g/dL (5.8-8.1); Sodium 141 mmol/L (136-145)
[2019-01-17 19:13] LABS: CKMB 5.2 ng/mL (0-6.6)
[2019-01-17] MEDS ORDERED: Furosemide 40 MG/4 ML VIAL ONE (19:14)
[2019-01-17] MEDS ORDERED: Ondansetron ODT 4 MG TAB PO PRN (19:44)
[2019-01-17] MEDS ORDERED: Ondansetron PF 4 MG/2 ML Vial IVP PRN (19:44)
[2019-01-17] MEDS ORDERED: Acetaminophen 325 MG TAB PO PRN (19:44)
[2019-01-17] MEDS ORDERED: Nitroglycerin 50 MG/250 ML BOT 250 ML IVPB SCH (22:15)
[2019-01-17 22:28] LABS: Troponin I 1.572 ng/mL (< 0.028)
[2019-01-18 01:37] LABS: Troponin I 2.814 ng/mL (< 0.028)
[2019-01-18] MEDS: Heparin 10,000 UNITS/ 10 ML VIAL SLOW IVP SCH ×3 (01:43→19:59)
[2019-01-18] MEDS ORDERED: traMADol HCl 50 MG TAB PO PRN (01:57)
[2019-01-18] MEDS ORDERED: Nitroglycerin 0.4 MG TAB (25 Tab Bottle) SL PRN (01:57)
[2019-01-18 05:36] LABS: #Eosinphils 0.1 thou/uL (0.0-0.7); #Lymphocytes 1.6 thou/uL (1.20-3.40); #Monocytes 0.8 thou/uL (0.11-0.59); %Basophils 0.1 % (0.0-1.0); %Eosinophils 0.6 % (0.0-10.0); %Lymphocytes 16.5 % (21.0-51.0); %Monocytes 7.9 % (0.0-10.0); %Neutrophils 74.8 % (42.0-75.0); Hemoglobin 12.8 g/dL (14.0-18.0); Mean Corpuscular HGB CONC 33.4 g/dL (32.0-36.0); Mean Corpuscular Hemoglobin 32.7 pg (27.0-31.0); Mean Corpuscular Volume 97.9 fL (78.0-98.0); Mean Platelet Volume 8.9 fL (7.4-10.4); Platelet Count 183 thou/uL (130-400); RBC Distribution Width 12.6 % (11.5-14.5); Red Blood Cell (RBC) Count 3.92 mill/uL (4.70-6.10); White Blood Cell (WBC) Count 9.4 thou/uL (4.8-10.8)
[2019-01-18 05:59] LABS: Anion Gap 13 mmol/L (10-20); BUN (Urea Nitrogen) 15 mg/dL (8.4-25.7); Calc. Creatinine Clearance 89 mL/min (70-130); Calcium 8.8 mg/dL (7.8-10.44); Carbon Dioxide 24 mmol/L (23-31); Chloride 108 mmol/L (98-107); Estimated GFR-MDRD 84; Glucose 125 mg/dL (83-110); Potassium 3.6 mmol/L (3.5-5.1); Sodium 141 mmol/L (136-145)
[2019-01-18] MEDS ORDERED: Bisacodyl 5 MG TAB PO SCH (09:00)
[2019-01-18] MEDS ORDERED: Rosuvastatin 10 MG TAB PO SCH (09:00)
[2019-01-18] MEDS ORDERED: Morphine 4 MG/ML VIAL ONE (10:41)
[2019-01-18] MEDS: Acyclovir 400 mg Tablet PO SCH ×2 (10:53→21:23)
[2019-01-18] MEDS: Aspirin 81 mg Enteric Coated Tablet PO SCH (10:54)
[2019-01-18] MEDS: Calcium Carbonate + Vit D 1 TAB PO SCH (10:54)
[2019-01-18] MEDS: Ascorbic Acid 500 mg Chewable Tablet PO SCH (10:54)
[2019-01-18] MEDS: Amlodipine 10 MG TAB PO SCH (10:54)
[2019-01-18] MEDS: Lisinopril 20 MG TAB PO SCH ×2 (10:54→21:21)
[2019-01-18] MEDS: DULoxetine 60 MG CAP PO SCH ×2 (10:54→21:20)
[2019-01-18] MEDS: TICAGRELOR 90 MG TABLET PO SCH ×2 (10:55→21:21)
[2019-01-18] MEDS: Minoxidil 2.5 MG TAB PO SCH ×2 (10:55→21:22)
[2019-01-18] MEDS: Tamsulosin HCl 0.4 MG CAP PO SCH (10:55)
[2019-01-18] MEDS: clonazePAM 1 MG TAB PO SCH (11:00)
[2019-01-18] MEDS: Enoxaparin Sodium 40 MG/0.4 ML SYRINGE SC SCH (11:01)
--- NOTE | 2019-01-18 11:03 | PDOC.CPN ---
- Subjective Date: 01/18/19 Time: 12:54 Interval history: 01/23 CP earleir Now minimal to no symptoms - Objective Allergies/Adverse Reactions: Allergies Allergy/AdvReac Type Severity Reaction Status Date / Time [id number]-Hte Reductase Allergy Verified 01/17/19 21:44 Inhibitor Sulfa (Sulfonamide Allergy Verified 01/17/19 21:44 Antibiotics) sulfamethoxazole Allergy Verified 01/17/19 21:44 [From Bactrim] trimethoprim [From Bactrim] Allergy Verified 01/17/19 21:44 Visit Medications: Current Medications Acetaminophen (Tylenol) 650 mg PO Q4H PRN PRN Reason: Headache/Fever/Mild Pain (1-3) Acyclovir (Zovirax) 400 mg PO BID [facility] Last Admin: 01/18/19 10:53 Dose: 400 mg Amlodipine Besylate (Norvasc) 10 mg PO DAILY [facility] Last Admin: 01/18/19 10:54 Dose: 10 mg Ascorbic Acid (Vitamin C) 500 mg PO DAILY [facility] Last Admin: 01/18/19 10:54 Dose: 500 mg Aspirin (Ecotrin) 81 mg PO DAILY [facility] Last Admin: 01/18/19 10:54 Dose: 81 mg Bisacodyl (Dulcolax) 5 mg PO DAILY [facility] Last Admin: 01/18/19 10:52 Dose: Not Given Calcium/Vitamin D (Caltrate 600 + Vit D) 1 tab PO DAILY [facility] Last Admin: 01/18/19 10:54 Dose: 1 tab Clonazepam (Klonopin) 1 mg PO DAILY [facility] Last Admin: 01/18/19 11:00 Dose: Not Given Diclofenac Sodium (Diclofenac Sodium) 75 mg PO BID [facility] Duloxetine HCl (Cymbalta) 60 mg PO BID [facility] Last Admin: 01/18/19 10:54 Dose: 60 mg Enoxaparin Sodium (Lovenox) 40 mg SC 0900 [facility] Last Admin: 01/18/19 11:01 Dose: Not Given Gabapentin (Neurontin) 3,200 mg PO TID [facility] Heparin Sodium (Porcine) (Heparin 1,000 Units/Ml (10 Ml)) 0 units SLOW IVP WILLCALL [facility] Last Admin: 01/18/19 07:26 Dose: 40,000 unit Nitroglycerin/Dextrose (Nitroglycerin 50 Mg/250 Ml Bot) 250 mls @ 0 mls/hr IVPB INF [facility]; Protocol Heparin Sodium/Dextrose (Heparin 25,000 Units/D5w 500 Ml) 500 mls @ 0 mls/hr IV INF [facility]; Protocol Lisinopril (Zestril) 20 mg PO BID [facility] Last Admin: 01/18/19 10:54 Dose: 20 mg Metoprolol Succinate (Toprol Xl) 100 mg PO BID [facility] Last Admin: 01/18/19 10:55 Dose: 100 mg Minoxidil (Minoxidil) 2.5 mg PO BID [facility] Last Admin: 01/18/19 10:55 Dose: 2.5 mg Nitroglycerin (Nitrostat) 0.4 mg SL Q5MIN PRN PRN Reason: Chest Pain Ondansetron HCl (Zofran Odt) 4 mg PO Q6H PRN PRN Reason: Nausea/Vomiting Ondansetron HCl (Zofran) 4 mg IVP Q6H PRN PRN Reason: Nausea/Vomiting Pantoprazole Sodium (Protonix) 40 mg PO DAILY [facility] Last Admin: 01/18/19 10:55 Dose: 40 mg Abacavir/Dolutegravir/Lamivudi [Triumeq] 1 Tablet 0 each PO DAILY [facility] Rosuvastatin Calcium (Crestor) 10 mg PO DAILY [facility] Last Admin: 01/18/19 10:52 Dose: Not Given Sodium Chloride (Flush - Normal Saline) 10 ml IVF Q12HR [facility] Last Admin: 01/18/19 10:53 Dose: Not Given Sodium Chloride (Flush - Normal Saline) 10 ml IVF PRN PRN PRN Reason: Saline Flush Tamsulosin HCl (Flomax) 0.4 mg PO DAILY [facility] Last Admin: 01/18/19 10:55 Dose: 0.4 mg Ticagrelor (Brilinta) 90 mg PO BID [facility] Last Admin: 01/18/19 10:55 Dose: 90 mg Tramadol HCl (Ultram) 50 mg PO TID PRN PRN Reason: Pain Vital Signs & Weight: Vital Signs Temp Pulse Pulse Ox 01/18/19 07:51 97 01/18/19 07:00 97.8 F 01/18/19 04:00 98.1 F 96 01/18/19 03:53 98 01/18/19 03:10 76 01/18/19 00:00 97.6 F Weight 185 lb 3.013 oz - Physical Exam General: alert & oriented x3 HEENT: normocephaly Neck: no masses Cardiac: no murmur, regular rate, regular rhythm Lungs: normal exam Neuro: grossly intact Abdomen: soft Extremities: no edema Skin: rash Musculoskeletal: no pain - Labs Result Diagrams: 01/18/19 05:12 01/18/19 05:12 Troponin/CKMB CK-MB (CK-2) 5.2 ng/mL (0-6.6) 01/17/19 18:23 Troponin I 2.814 ng/mL (< 0.028) H* 01/18/19 00:39 - Assessment/Plan Assessment/Plan: Severe CAD with occluded LM, and 99% RCA with SVG to RCA present Very difficult situation On IV nitro and heparin RCA may be revascularized but pt currently with graft to the RCA. Symptoms likely related to diffuce ischemia with small distal LAD (80% stenosis ) and occulded Cx without graft and SVG rto RCA without coverage of the RPL Stent to RCA would be from ostium to distal region. No good landing zone distally given very small dital RCA into the RPL Long discussio with pt and sister. they are not interested in further intervention Understand his cardiac condition and would like meds only Add ranexa to IV nitro and heparin Agree with DNR, pt not interested in aggressive measures
[2019-01-18] MEDS: Gabapentin 400 MG CAP PO SCH ×3 (12:11→21:44)
--- NOTE | 2019-01-18 15:13 | PDOC.HOSPP ---
- Subjective Subjective: Says he is doing fine. He has resolved himself to the idea that the CAD is not amenable to intervention. He is completely comfortable with that. He had said the same thing last time I saw him here in the hospital. No pain now. - Objective Vital Signs & Weight: Vital Signs (12 hours) Temp Pulse Ox 01/18/19 12:00 98.3 F 01/18/19 07:51 97 01/18/19 07:00 97.8 F 01/18/19 04:00 98.1 F 96 01/18/19 03:53 98 Weight Weight 185 lb 3.013 oz Most Recent Monitor Data Heart Rate from ECG 86 NIBP 157/81 NIBP BP-Mean 106 Respiration from ECG 18 SpO2 100 I&O: 01/17/19 01/18/19 01/19/19 06:59 06:59 06:59 Intake Total 255.9 240 Output Total 1150 150 Balance -894.1 90 Result Diagrams: 01/18/19 05:12 01/18/19 05:12 Hospitalist ROS - Medication Medications: Active Medications Generic Name Dose Route Start Last Admin Trade Name Nitin PRN Reason Stop Dose Admin Acyclovir 400 mg 01/18/19 09:00 01/18/19 10:53 Zovirax PO 400 mg BID VAL Administration Amlodipine Besylate 10 mg 01/18/19 09:00 01/18/19 10:54 Norvasc PO 10 mg DAILY VAL Administration Ascorbic Acid 500 mg 01/18/19 09:00 01/18/19 10:54 Vitamin C PO 500 mg DAILY VAL Administration Aspirin 81 mg 01/18/19 09:00 01/18/19 10:54 Ecotrin PO 81 mg DAILY VAL Administration Calcium/Vitamin D 1 tab 01/18/19 09:00 01/18/19 10:54 Caltrate 600 + Vit D PO 1 tab DAILY VAL Administration Clonazepam 1 mg 01/18/19 09:00 01/18/19 11:00 Klonopin PO Not Given DAILY VAL Diclofenac Sodium 75 mg 01/18/19 09:00 01/18/19 12:12 Diclofenac Sodium PO 75 mg BID VAL Administration Duloxetine HCl 60 mg 01/18/19 09:00 01/18/19 10:54 Cymbalta PO 60 mg BID VAL Administration Enoxaparin Sodium 40 mg 01/18/19 09:00 01/18/19 11:01 Lovenox SC Not Given 0900 [facility] Gabapentin 3,200 mg 01/18/19 09:00 01/18/19 12:11 Neurontin PO 3,200 mg TID VAL Administration Heparin Sodium (Porcine) 0 units 01/17/19 22:15 01/18/19 07:26 Heparin 1,000 Units/Ml (10 Ml) SLOW IVP 40,000 unit WILLCALL VAL Administration Lisinopril 20 mg 01/18/19 09:00 01/18/19 10:54 Zestril PO 20 mg BID VAL Administration Metoprolol Succinate 100 mg 01/18/19 09:00 01/18/19 10:55 Toprol Xl PO 100 mg BID VAL Administration Minoxidil 2.5 mg 01/18/19 09:00 01/18/19 10:55 Minoxidil PO 2.5 mg BID VAL Administration Pantoprazole Sodium 40 mg 01/18/19 09:00 01/18/19 10:55 Protonix PO 40 mg DAILY VAL Administration Sodium Chloride 10 ml 01/18/19 09:00 01/18/19 10:53 Flush - Normal Saline IVF Not Given Q12HR [facility] Tamsulosin HCl 0.4 mg 01/18/19 09:00 01/18/19 10:55 Flomax PO 0.4 mg DAILY [facility] Administration Ticagrelor 90 mg 01/18/19 09:00 01/18/19 10:55 Brilinta PO 90 mg BID VAL Administration - Exam General Appearance: NAD, awake alert Neck: supple, symmetric, no JVD, no thyromegaly, no lymphadenopathy, no carotid bruit Heart: RRR, no murmur, no gallops, no rubs, normal peripheral pulses Respiratory: CTAB, no wheezes, no rales, no ronchi, normal chest expansion, no tachypnea, normal percussion Gastrointestinal: soft, non-tender, non-distended, normal bowel sounds, no palpable masses, no hepatomegaly, no splenomegaly, no bruit Extremities: no cyanosis, no clubbing, no edema Skin: normal turgor, no lesions, no rashes Musculoskeletal: normal tone Psychiatric: normal affect, normal behavior, A&O x 3 Hosp A/P (1) CAD (coronary artery disease) Code(s): I25.10 - ATHSCL HEART DISEASE OF [place] CORONARY ARTERY W/O ANG PCTRS Status: Acute Qualifiers: [place] vs. transplanted heart: [place] heart Associated angina: with unstable angina (2) NSTEMI (non-ST elevated myocardial infarction) Code(s): I21.4 - NON-ST ELEVATION (NSTEMI) MYOCARDIAL INFARCTION Status: Acute (3) Dyslipidemia Code(s): E78.5 - HYPERLIPIDEMIA, UNSPECIFIED Status: Chronic (4) HIV (human immunodeficiency virus infection) Code(s): B20 - HUMAN IMMUNODEFICIENCY VIRUS [HIV] DISEASE Status: Chronic Qualifiers: HIV symptom status: asymptomatic Qualified Code(s): Z21 - Asymptomatic human immunodeficiency virus [HIV] infection status (5) History of CVA (cerebrovascular accident) Code(s): Z86.73 - PRSNL HX OF TIA (TIA), AND CEREB INFRC W/O RESID DEFICITS Status: Chronic (6) Hypertension Code(s): I10 - ESSENTIAL (PRIMARY) HYPERTENSION Status: Chronic Qualifiers: Hypertension type: essential hypertension Qualified Code(s): I10 - Essential (primary) hypertension - Plan He is doing fine. He understands that the CAD is not amenable to intervention. Continue with IV heparin and nitro. Will keep on these for 48 hours per Cards. Continue home meds otherwise.
[2019-01-18] MEDS: Heparin 25,000 units/D5W 500 ML IV SCH (16:05)
--- NOTE | 2019-01-18 20:37 | CON ---
DATE OF CONSULTATION: 01/18/2019 HISTORY OF PRESENT ILLNESS: Mr. Rosales is a pleasant gentleman, who has recently undergone cardiac catheterization (on 12/30). He had an occluded left main coronary. He had diffuse right coronary disease with a 90% mid lesion and ostial lesion and diffuse distal disease. He had a GARDNER graft to his LAD that was patent. He had a saphenous vein graft to his posterior descending artery that was patent. There were no other grafts identified. Medical management for his coronary artery disease was recommended. He presented with chest discomfort, was admitted to the critical care unit. He is pain-free by my consultation. The patient is a do not resuscitate patient now. PAST MEDICAL HISTORY: 1. Remarkable for hypertension. 2. History of CVA in the past. 3. History of coronary artery bypass grafting. 4. History of an appendectomy. 5. History of lipid disorder. 6. History of tonsillectomy. SOCIAL HISTORY: He is a nonsmoker, nondrinker, nondrug user. ALLERGIES: REPORTS ALLERGIES TO SULFA. FAMILY HISTORY: Positive for vascular disease. REVIEW OF SYSTEMS: 10-point review of systems completed, is negative. PHYSICAL EXAMINATION: GENERAL: Pleasant gentleman, in no distress. VITAL SIGNS: 152/92, heart rate 74, respiratory rate 17. EYES: Pupils are equal. Sclerae are anicteric. NECK: Supple. LUNGS: Clear. HEART: Regular rhythm. ABDOMEN: Soft and nontender. EXTREMITIES: Without clubbing, cyanosis, or edema. NEURO: Nonfocal. LABORATORY DATA: White count 9.4, hemoglobin 12.8, platelets 183. Electrolytes are unremarkable. Potassium is 3.6. Troponin peaked at 2.8 midnight last night. IMPRESSION: Coronary artery disease. It was felt not to be amenable to an operative procedure, percutaneous intervention. Medical management is recommended. He would probably be transferred out of the critical care unit. He remains pain free in the morning. This is a 70-minute consult, with greater than 50% of the time spent on the unit coordinating care. Job ID: [id number] MTDD
[2019-01-18] MEDS: Bisacodyl 5 MG TAB PO SCH (21:21)
[2019-01-18] MEDS: Rosuvastatin 10 MG TAB PO SCH (21:21)
--- NOTE | 2019-01-19 08:30 | PDOC.CPN ---
- Subjective Date: 01/19/19 Time: 11:40 Interval history: Doing very well. No comp,aints. On IV nitro and heparin - Objective Allergies/Adverse Reactions: Allergies Allergy/AdvReac Type Severity Reaction Status Date / Time [id number] Reductase Allergy Verified 01/17/19 21:44 Inhibitor Sulfa (Sulfonamide Allergy Verified 01/17/19 21:44 Antibiotics) sulfamethoxazole Allergy Verified 01/17/19 21:44 [From Bactrim] trimethoprim [From Bactrim] Allergy Verified 01/17/19 21:44 Visit Medications: Current Medications Acetaminophen (Tylenol) 650 mg PO Q4H PRN PRN Reason: Headache/Fever/Mild Pain (1-3) Acyclovir (Zovirax) 400 mg PO BID [facility] Last Admin: 01/18/19 21:23 Dose: 400 mg Amlodipine Besylate (Norvasc) 10 mg PO DAILY [facility] Last Admin: 01/18/19 10:54 Dose: 10 mg Ascorbic Acid (Vitamin C) 500 mg PO DAILY [facility] Last Admin: 01/18/19 10:54 Dose: 500 mg Aspirin (Ecotrin) 81 mg PO DAILY [facility] Last Admin: 01/18/19 10:54 Dose: 81 mg Bisacodyl (Dulcolax) 5 mg PO 2100 [facility] Last Admin: 01/18/19 21:21 Dose: 5 mg Calcium/Vitamin D (Caltrate 600 + Vit D) 1 tab PO DAILY [facility] Last Admin: 01/18/19 10:54 Dose: 1 tab Clonazepam (Klonopin) 1 mg PO DAILY [facility] Last Admin: 01/18/19 11:00 Dose: Not Given Diclofenac Sodium (Diclofenac Sodium) 75 mg PO BID [facility] Last Admin: 01/18/19 21:21 Dose: 75 mg Duloxetine HCl (Cymbalta) 60 mg PO BID [facility] Last Admin: 01/18/19 21:20 Dose: 60 mg Enoxaparin Sodium (Lovenox) 40 mg SC 0900 [facility] Last Admin: 01/18/19 11:01 Dose: Not Given Gabapentin (Neurontin) 3,000 mg PO TID [facility] Gabapentin (Neurontin) 200 mg PO TID [facility] Heparin Sodium (Porcine) (Heparin 1,000 Units/Ml (10 Ml)) 0 units SLOW IVP WILLCALL [facility] Last Admin: 01/18/19 19:59 Dose: 2,520 unit Nitroglycerin/Dextrose (Nitroglycerin 50 Mg/250 Ml Bot) 250 mls @ 0 mls/hr IVPB INF [facility]; Protocol Heparin Sodium/Dextrose (Heparin 25,000 Units/D5w 500 Ml) 500 mls @ 0 mls/hr IV INF [facility]; Protocol Last Admin: 01/18/19 16:05 Dose: 500 mls Lisinopril (Zestril) 20 mg PO BID [facility] Last Admin: 01/18/19 21:21 Dose: 20 mg Metoprolol Succinate (Toprol Xl) 100 mg PO BID [facility] Last Admin: 01/18/19 21:22 Dose: 100 mg Minoxidil (Minoxidil) 2.5 mg PO BID [facility] Last Admin: 01/18/19 21:22 Dose: 2.5 mg Nitroglycerin (Nitrostat) 0.4 mg SL Q5MIN PRN PRN Reason: Chest Pain Ondansetron HCl (Zofran Odt) 4 mg PO Q6H PRN PRN Reason: Nausea/Vomiting Ondansetron HCl (Zofran) 4 mg IVP Q6H PRN PRN Reason: Nausea/Vomiting Pantoprazole Sodium (Protonix) 40 mg PO DAILY [facility] Last Admin: 01/18/19 10:55 Dose: 40 mg Abacavir/Dolutegravir/Lamivudi [Triumeq] 600/50/300mg Tablet 0 each PO DAILY [facility] Ranolazine (Ranexa) 500 mg PO BID [facility] Last Admin: 01/18/19 21:20 Dose: 500 mg Rosuvastatin Calcium (Crestor) 10 mg PO 2100 [facility] Last Admin: 01/18/19 21:21 Dose: 10 mg Sodium Chloride (Flush - Normal Saline) 10 ml IVF Q12HR [facility] Last Admin: 01/18/19 21:23 Dose: Not Given Sodium Chloride (Flush - Normal Saline) 10 ml IVF PRN PRN PRN Reason: Saline Flush Tamsulosin HCl (Flomax) 0.4 mg PO DAILY [facility] Last Admin: 01/18/19 10:55 Dose: 0.4 mg Ticagrelor (Brilinta) 90 mg PO BID [facility] Last Admin: 01/18/19 21:21 Dose: 90 mg Tramadol HCl (Ultram) 50 mg PO TID PRN PRN Reason: Pain Vital Signs & Weight: Vital Signs Temp BP 01/19/19 08:00 97.7 F 01/19/19 04:00 97.8 F 01/19/19 00:00 98.4 F 01/18/19 21:21 122/70 Weight 183 lb 6.793 oz - Physical Exam General: alert & oriented x3 HEENT: normocephaly Neck: supple neck, no masses, no bruit Cardiac: no murmur, regular rate, regular rhythm Lungs: normal exam Neuro: grossly intact Extremities: no edema - Labs Result Diagrams: 01/18/19 05:12 01/18/19 05:12 Troponin/CKMB CK-MB (CK-2) 5.2 ng/mL (0-6.6) 01/17/19 18:23 Troponin I 2.814 ng/mL (< 0.028) H* 01/18/19 00:39 - Telemetry Sinus rhythms and dysrhythmias: sinus rhythm - Assessment/Plan Assessment/Plan: 01/20 REC Wean off nitro Change to patch if still with Sx keep heparin overnight Ranexa, BB, nitrates Anti-platelet Consider low dose xarelto 01/18 REC Severe CAD with occluded LM, and 99% RCA with SVG to RCA present Very difficult situation On IV nitro and heparin RCA may be revascularized but pt currently with graft to the RCA. Symptoms likely related to diffuce ischemia with small distal LAD (80% stenosis ) and occulded Cx without graft and SVG rto RCA without coverage of the RPL Stent to RCA would be from ostium to distal region. No good landing zone distally given very small dital RCA into the RPL Long discussio with pt and sister. they are not interested in further intervention Understand his cardiac condition and would like meds only Add ranexa to IV nitro and heparin Agree with DNR, pt not interested in aggressive measures
[2019-01-19] MEDS: DOLUTEGRAVIR PO SCH ×2 (08:42→09:00)
[2019-01-19] MEDS: ABACAVIR PO SCH ×2 (08:42→09:00)
[2019-01-19] MEDS: LAMIVUDI PO SCH ×2 (08:42→09:00)
[2019-01-19] MEDS: Acyclovir 400 mg Tablet PO SCH ×2 (08:45→20:56)
[2019-01-19] MEDS: Calcium Carbonate + Vit D 1 TAB PO SCH (08:46)
[2019-01-19] MEDS: Aspirin 81 mg Enteric Coated Tablet PO SCH (08:46)
[2019-01-19] MEDS: Ascorbic Acid 500 mg Chewable Tablet PO SCH (08:46)
[2019-01-19] MEDS: Lisinopril 20 MG TAB PO SCH ×2 (08:47→20:56)
[2019-01-19] MEDS: Tamsulosin HCl 0.4 MG CAP PO SCH (08:48)
[2019-01-19] MEDS: DULoxetine 60 MG CAP PO SCH ×2 (08:50→20:56)
[2019-01-19] MEDS: TICAGRELOR 90 MG TABLET PO SCH ×2 (08:51→20:57)
[2019-01-19] MEDS: Minoxidil 2.5 MG TAB PO SCH ×2 (08:51→20:56)
[2019-01-19] MEDS: Amlodipine 10 MG TAB PO SCH (08:52)
[2019-01-19] MEDS: Enoxaparin Sodium 40 MG/0.4 ML SYRINGE SC SCH (08:53)
[2019-01-19] MEDS: clonazePAM 1 MG TAB PO SCH (08:53)
[2019-01-19] MEDS: Gabapentin 300 MG CAP PO SCH ×3 (08:54→20:53)
[2019-01-19] MEDS: Gabapentin 100 MG CAP PO SCH ×3 (08:55→20:53)
[2019-01-19] MEDS: Heparin 25,000 units/D5W 500 ML IV SCH (13:29)
--- NOTE | 2019-01-19 15:57 | PDOC.HOSPP ---
- Subjective Subjective: Doing well. No pain. In talking with him and his sister, he was actually given an Rx for Ranexa on Sunday. He never took any because he developed symptoms and came to the hospital. His sister has been giving them to him and he has been taking them since yesterday. - Objective Vital Signs & Weight: Vital Signs (12 hours) Temp Pulse BP Pulse Ox 01/19/19 12:00 97.7 F 98 01/19/19 08:52 65 177/86 H 01/19/19 08:47 177/86 H 01/19/19 08:00 97.7 F 95 01/19/19 04:00 97.8 F Weight Weight 183 lb 6.793 oz Most Recent Monitor Data Heart Rate from ECG 63 NIBP 146/75 NIBP BP-Mean 98 Respiration from ECG 13 SpO2 95 I&O: 01/18/19 01/19/19 01/20/19 06:59 06:59 06:59 Intake Total 255.9 1752.1 390 Output Total 1150 825 400 Balance -894.1 927.1 -10 Result Diagrams: 01/18/19 05:12 01/18/19 05:12 Hospitalist ROS - Medication Medications: Active Medications Generic Name Dose Route Start Last Admin Trade Name Freq PRN Reason Stop Dose Admin Acyclovir 400 mg 01/18/19 09:00 01/19/19 08:45 Zovirax PO 400 mg BID VAL Administration Amlodipine Besylate 10 mg 01/18/19 09:00 01/19/19 08:52 Norvasc PO 10 mg DAILY [facility] Administration Ascorbic Acid 500 mg 01/18/19 09:00 01/19/19 08:46 Vitamin C PO 500 mg DAILY [facility] Administration Aspirin 81 mg 01/18/19 09:00 01/19/19 08:46 Ecotrin PO 81 mg DAILY [facility] Administration Bisacodyl 5 mg 01/18/19 21:00 01/18/19 21:21 Dulcolax PO 5 mg 2100 VAL Administration Calcium/Vitamin D 1 tab 01/18/19 09:00 01/19/19 08:46 Caltrate 600 + Vit D PO 1 tab DAILY [facility] Administration Clonazepam 1 mg 01/18/19 09:00 01/19/19 08:53 Klonopin PO Not Given DAILY VAL Diclofenac Sodium 75 mg 01/18/19 09:00 01/19/19 08:43 Diclofenac Sodium PO 75 mg BID VAL Administration Duloxetine HCl 60 mg 01/18/19 09:00 01/19/19 08:50 Cymbalta PO 60 mg BID VAL Administration Gabapentin 3,000 mg 01/19/19 09:00 01/19/19 15:06 Neurontin PO 3,000 mg TID VAL Administration Gabapentin 200 mg 01/19/19 09:00 01/19/19 15:07 Neurontin PO 200 mg TID VAL Administration Heparin Sodium (Porcine) 0 units 01/17/19 22:15 01/18/19 19:59 Heparin 1,000 Units/Ml (10 Ml) SLOW IVP 2,520 unit WILLCALL VAL Administration Heparin Sodium/Dextrose 500 mls @ 0 mls/hr 01/17/19 22:15 01/19/19 13:29 Heparin 25,000 Units/D5w 500 Ml IV 500 mls INF VAL Administration Protocol As Directed Lisinopril 20 mg 01/18/19 09:00 01/19/19 08:47 Zestril PO 20 mg BID [facility] Administration Metoprolol Succinate 100 mg 01/18/19 09:00 01/19/19 08:45 Toprol Xl PO 100 mg BID [facility] Administration Minoxidil 2.5 mg 01/18/19 09:00 01/19/19 08:51 Minoxidil PO 2.5 mg BID [facility] Administration Pantoprazole Sodium 40 mg 01/18/19 09:00 01/19/19 08:45 Protonix PO 40 mg DAILY [facility] Administration Abacavir/ 0 each 01/18/19 09:00 01/19/19 09:00 Dolutegravir/ PO 1 each Lamivudi [Triumeq] DAILY [facility] Administration 600/50/300mg Tablet Ranolazine 500 mg 01/18/19 21:00 01/19/19 11:37 Ranexa PO 500 mg BID [facility] Administration Rosuvastatin Calcium 10 mg 01/18/19 21:00 01/18/19 21:21 Crestor PO 10 mg 2100 VAL Administration Sodium Chloride 10 ml 01/18/19 09:00 01/19/19 09:00 Flush - Normal Saline IVF Not Given Q12HR VAL Tamsulosin HCl 0.4 mg 01/18/19 09:00 01/19/19 08:48 Flomax PO 0.4 mg DAILY [facility] Administration Ticagrelor 90 mg 01/18/19 09:00 01/19/19 08:51 Brilinta PO 90 mg BID VAL Administration - Exam General Appearance: NAD, awake alert Heart: RRR, no murmur, no gallops, no rubs, normal peripheral pulses Respiratory: CTAB, no wheezes, no rales, no ronchi, normal chest expansion, no tachypnea, normal percussion Gastrointestinal: soft, non-tender, non-distended, normal bowel sounds, no palpable masses, no hepatomegaly, no splenomegaly, no bruit Skin: normal turgor Musculoskeletal: normal tone, normal strength Psychiatric: normal affect, normal behavior, A&O x 3 Hosp A/P (1) NSTEMI (non-ST elevated myocardial infarction) Code(s): I21.4 - NON-ST ELEVATION (NSTEMI) MYOCARDIAL INFARCTION Status: Acute (2) CAD (coronary artery disease) Code(s): I25.10 - ATHSCL HEART DISEASE OF [place] CORONARY ARTERY W/O ANG PCTRS Status: Acute Qualifiers: [place] vs. transplanted heart: [place] heart Associated angina: with unstable angina (3) Dyslipidemia Code(s): E78.5 - HYPERLIPIDEMIA, UNSPECIFIED Status: Chronic (4) HIV (human immunodeficiency virus infection) Code(s): B20 - HUMAN IMMUNODEFICIENCY VIRUS [HIV] DISEASE Status: Chronic Qualifiers: HIV symptom status: asymptomatic Qualified Code(s): Z21 - Asymptomatic human immunodeficiency virus [HIV] infection status (5) History of CVA (cerebrovascular accident) Code(s): Z86.73 - PRSNL HX OF TIA (TIA), AND CEREB INFRC W/O RESID DEFICITS Status: Chronic (6) Hypertension Code(s): I10 - ESSENTIAL (PRIMARY) HYPERTENSION Status: Chronic Qualifiers: Hypertension type: essential hypertension Qualified Code(s): I10 - Essential (primary) hypertension - Plan He is doing fine. He understands that the CAD is not amenable to intervention. Continue with IV heparin and nitro. Will keep on these for 48 hours per Cards. Weaning nitro as tolerated. Started officially on the Ranexa. D/W Dr. Shukla. May consider low dose Xarelto when weaning off the heparin gtt. Patient has some concerns about cost of meds. Continue home meds otherwise.
--- NOTE | 2019-01-19 17:47 | PRG ---
DATE OF SERVICE: 01/19/2019 SUBJECTIVE: Heraclio Rosales did well overnight. He denies having chest pain last night or earlier this morning. OBJECTIVE: VITAL SIGNS: His oximetry is 98% on room air, blood pressure 144/83, heart rate is in the 60s, respiratory rate is in the teens. LUNGS: Clear. HEART: Regular rhythm. ABDOMEN: Soft and nontender. IMPRESSION: Coronary artery disease with chest pain and ischemia on presentation. PLAN: Transfer out of critical care unit when Cardiology feels as appropriate. Job ID: [id number]
[2019-01-19] MEDS: Rosuvastatin 10 MG TAB PO SCH (20:56)
[2019-01-19] MEDS: Bisacodyl 5 MG TAB PO SCH (20:57)
[2019-01-20] MEDS: Heparin 10,000 UNITS/ 10 ML VIAL SLOW IVP SCH (06:34)
--- NOTE | 2019-01-20 07:40 | HP ---
PRIMARY CARE DOCTOR: Dr. Nat Olivia. CODE STATUS: Full code. TIME OF EVALUATION: 7:50 p.m. CHIEF COMPLAINT: Shortness of breath and chest pain. HISTORY OF PRESENT ILLNESS: This is a 73-year-old male patient, past medical history of multiple comorbidities. Please see past medical history section. The patient came to the hospital after having chest pain, associated with shortness of breath. The symptoms were severe with no clear triggers, no alleviating factors , started early this morning. The patient became hypoxic and diaphoretic, initially thought to have ST-elevation UT. Dr. Shukla has come and evaluated the patient. CAT scan was canceled. The patient has known advanced coronary artery disease. He was placed on BiPAP and symptoms have improved by the time of my examination. He is still needing BiPAP to decrease the labored breathing and shortness of breath. REVIEW OF SYSTEMS: CONSTITUTIONAL: No fever, chills, or generalized weakness. RESPIRATORY: The patient is in distress, using BiPAP, came with shortness of breath. CARDIOVASCULAR: The patient has chest pain. No palpitation. GASTROINTESTINAL: No nausea, vomiting, diarrhea, or abdominal pain. DIVING FISHER: No dizziness, headache, or feeling lightheaded. GENITOURINARY: No burning on urination. EXTREMITIES: The patient has chronic changes in color and bilateral legs. All other systems were reviewed and negative except for the findings mentioned above. PAST MEDICAL HISTORY: Positive for coronary artery disease, status post open heart surgery; HIV; hyperlipidemia; hypertension; strokes x3 in 2012. PAST SURGICAL HISTORY: CABG, 2004; appendectomy. PSYCHIATRIC HISTORY: No previous psych history. SOCIAL HISTORY: No alcohol. No drugs. The patient is a former smoker. He smokes cigarettes. The patient quit smoking more than 10 years ago. FAMILY HISTORY: Reviewed and noncontributory for current presentation. KNOWN ALLERGIES: Statins, sulfa. REPORTED MEDICATIONS: Lisinopril, amlodipine, metoprolol, minoxidil, clonazepam , fenofibrate, alendronate, tamsulosin, Cymbalta, calcium 600 plus D3, aspirin, vitamin C, Zetia, tramadol, [place], Dulcolax, Advil, gabapentin, abacavir, testosterone, diclofenac, omeprazole, cyclobenzaprine. PHYSICAL EXAMINATION: VITAL SIGNS: On presentation, heart rate was 103, respiratory rate was 24, oxygen saturation was 97 on BiPAP, blood pressure 143/48. The blood pressure was initially high, then has normalized; during my examination, it was normal. Also, the respiratory rate still was in the 20s. GENERAL APPEARANCE: The patient is in mild distress due to respiratory failure. The patient needed a BiPAP for good saturation and decreased level of respiration. HEENT: Eyes; normal conjunctivae. Moist oral mucosa. Anicteric. NECK: No JVD. RESPIRATORY: As mentioned, the patient is on BiPAP. Bilateral air entry is decreased. Symmetric expansion. CARDIOVASCULAR: The patient is mildly tachycardic with heart rate in 105 and 90s. No murmurs. No gallop. No edema. ABDOMEN: Soft. Normal bowel sounds. MUSCULOSKELETAL: Baseline range of motion and strength. SKIN: Warm and intact. No pallor. No rash. No redness. Chronic changes of in bilateral lower extremities. NEUROLOGIC: No evidence of any new focal weakness. Cranial nerves seems to be intact. PSYCHIATRIC: The patient is in good mood. No anxiety. Optimal judgment. DIAGNOSTIC DATA: EKG was discussed with endorsing physician. The patient has ST changes all over the leads as interpreted by oyster farmer seems like this is more consistent with chronic severe diffuse coronary artery disease. Chest x-ray was done. The patient has mild vascular congestion and perihilar haziness , suggesting edema or infiltrate not excluded. LABORATORY DATA: Labs were reviewed. The patient has a white count of 10.4, hemoglobin 14.6, MCV 97.9, platelet count 219. Coagulation; PT 12, INR 0.9, PTT 24.3. Chemistry; sodium 141, potassium 4.0, chloride 108, carbon dioxide 21, anion gap 16, BUN 19, creatinine 1.14, GFR 63, glucose 169, calcium 9.3, total bilirubin 0.3, AST 152, ALT 122. Troponin 0.033; on previous admissions, troponins have been all within the higher level. Albumin was normal. ASSESSMENT AND PLAN: The patient will be placed in the hospital with following medical problems. 1. He will be placed in ICU due to acute hypoxic respiratory failure. Needing noninvasive positive pressure ventilation to keep saturation over 90 and to decrease the labor of breathing. Critical care time of 37 minutes spent in bedside assessment and stabilization of the patient, counseling, coordination of care, medication reconciliation, and discussion with team for admission plan. 2. Acute hypoxic respiratory failure. The patient needing BiPAP to improve respiratory work and to keep saturation over 90. The patient reported improvement being on BiPAP. We will continue for now. We will place him in ICU for that reason. The patient does wear oxygen at home as reported as for acute on chronic respiratory failure. 3. Chest pain due to severe diffuse coronary artery disease. Dr. Shukla has seen the patient, initially thought that the patient would be a good candidate for cardiac cath but this procedure has been cancelled. We will follow recommendation from Cardiology. 4. Mildly elevated LFTs of unclear reason. We will monitor and treat accordingly. 5. Mildly elevated troponin. The patient has chronic advanced coronary artery disease as mentioned above. This may be the reason. No evidence of any acute coronary syndrome at this point. 6. History of human immunodeficiency virus. This is chronic, controlled, the patient has been reportedly taking his medication. 7. History of hypertension, initially uncontrolled. By the time of my examination, blood pressure has been controlled. Reconcile home medications and adjust treatment as needed. 8. High cholesterol. Low-cholesterol diet is advised. Reconcile home medication. 9. Deep venous thrombosis prophylaxis. 10. Chronic pain. The patient has been on gabapentin. Reconcile home medications once updated. Critical care 38 min spent in counseling, bedside assessment and coordination of care Job ID: [id number] MTDD
[2019-01-20] MEDS: DOLUTEGRAVIR PO SCH (09:21)
[2019-01-20] MEDS: LAMIVUDI PO SCH (09:21)
[2019-01-20] MEDS: ABACAVIR PO SCH (09:21)
[2019-01-20] MEDS: Acyclovir 400 mg Tablet PO SCH ×2 (09:24→21:26)
[2019-01-20] MEDS: Amlodipine 10 MG TAB PO SCH (09:25)
[2019-01-20] MEDS: Lisinopril 20 MG TAB PO SCH ×2 (09:26→21:26)
[2019-01-20] MEDS: clonazePAM 1 MG TAB PO SCH (09:26)
[2019-01-20] MEDS: Calcium Carbonate + Vit D 1 TAB PO SCH (09:27)
[2019-01-20] MEDS: DULoxetine 60 MG CAP PO SCH ×2 (09:27→21:26)
[2019-01-20] MEDS: Aspirin 81 mg Enteric Coated Tablet PO SCH (09:27)
--- NOTE | 2019-01-20 09:27 | PRG ---
DATE OF SERVICE: 01/20/2019 SUBJECTIVE: This morning, he is on a heparin drip and a nitroglycerin drip. No pain. No shortness of breath. OBJECTIVE: VITAL SIGNS: Saturations 90% on room air, blood pressure 150/77, pulse rate 18. CHEST: No wheezing or crackles. CARDIAC: Normal S1 and S2. No gallops. ABDOMEN: No mass. ASSESSMENT: 1. Coronary artery disease. 2. Chest pain. PLAN: Continue present treatment. Disposition as per Cardiology. We will follow while in the ICU. Job ID: [id number]
[2019-01-20] MEDS: Minoxidil 2.5 MG TAB PO SCH ×2 (09:28→21:26)
[2019-01-20] MEDS: Ascorbic Acid 500 mg Chewable Tablet PO SCH (09:28)
[2019-01-20] MEDS: Tamsulosin HCl 0.4 MG CAP PO SCH (09:28)
[2019-01-20] MEDS: TICAGRELOR 90 MG TABLET PO SCH ×2 (09:29→21:26)
[2019-01-20] MEDS: Gabapentin 100 MG CAP PO SCH ×3 (09:30→21:23)
[2019-01-20] MEDS: Gabapentin 300 MG CAP PO SCH ×3 (09:30→21:23)
--- NOTE | 2019-01-20 10:15 | PRG ---
DATE OF SERVICE: 01/20/2019 SUBJECTIVE: Mr. Rosales is sitting at the bedside. He is chest pain-free. OBJECTIVE: VITAL SIGNS: Blood pressure 129/68, pulse is in the 60s, sinus. LUNGS: Clear. CARDIAC: Normal S1. Normal S2. ABDOMEN: Soft, nontender. EXTREMITIES: No edema. ASSESSMENT: Status post non-ST elevation myocardial infarction. PLAN: The patient is not amenable to further interventional therapy. Bypass surgery repeat is not indicated and stenting of this diffusely diseased right coronary artery, I think would not be indicated or likely to be successful. The patient wishes to have palliative care do not resuscitate only. He states he wishes to go on hospice. We will consult Palliative Care. In the meantime, we will change him from heparin to Lovenox and change him from IV nitroglycerin to nitroglycerin paste. Job ID: [id number]
[2019-01-20] MEDS ORDERED: Enoxaparin Sodium 40 MG/0.4 ML SYRINGE SC SCH ×2 (10:45→21:00)
[2019-01-20] MEDS: Nitroglycerin 2% Ointment 1 INCH/1 GM Packet TOP SCH ×2 (13:01→21:27)
--- NOTE | 2019-01-20 16:05 | EKG ---
Test Reason : CHEST PAIN Blood Pressure : / mmHG Vent. Rate : 112 BPM Atrial Rate : 112 BPM P-R Int : 154 ms QRS Dur : 090 ms QT Int : 300 ms P-R-T Axes : 061 039 219 degrees QTc Int : 409 ms Sinus tachycardia Septal infarct , age undetermined Marked ST abnormality, possible inferior subendocardial injury Marked ST abnormality, possible anterolateral subendocardial injury Abnormal ECG When compared with ECG of 17-JAN-2019 18:39, (Unconfirmed) Significant changes have occurred Confirmed by BRITT PORTILLO, SPratik ([id number]) on 01/20/2019 4:05:37 PM Referred By: JOO Confirmed By:DR. Emelina DE LA TORRE MD
--- NOTE | 2019-01-20 17:19 | PDOC.HOSPP ---
- Subjective Subjective: Feels well. No complaints. - Objective Vital Signs & Weight: Vital Signs (12 hours) Temp Pulse BP Pulse Ox 01/20/19 16:00 97.7 F 01/20/19 12:00 97.8 F 98 01/20/19 09:26 129/68 01/20/19 09:25 67 129/68 01/20/19 08:00 98.7 F 96 01/20/19 07:37 99 Weight Weight 180 lb 15.992 oz Most Recent Monitor Data Heart Rate from ECG 61 NIBP 135/67 NIBP BP-Mean 89 Respiration from ECG 18 SpO2 88 I&O: 01/19/19 01/20/19 01/21/19 06:59 06:59 06:59 Intake Total 1752.1 1409.1 1131 Output Total 825 1620 225 Balance 927.1 -210.9 906 Result Diagrams: 01/18/19 05:12 01/18/19 05:12 Hospitalist ROS - Medication Medications: Active Medications Generic Name Dose Route Start Last Admin Trade Name Nitin PRN Reason Stop Dose Admin Acyclovir 400 mg 01/18/19 09:00 01/20/19 09:24 Zovirax PO 400 mg BID VAL Administration Amlodipine Besylate 10 mg 01/18/19 09:00 01/20/19 09:25 Norvasc PO 10 mg DAILY VAL Administration Ascorbic Acid 500 mg 01/18/19 09:00 01/20/19 09:28 Vitamin C PO 500 mg DAILY VAL Administration Aspirin 81 mg 01/18/19 09:00 01/20/19 09:27 Ecotrin PO 81 mg DAILY VAL Administration Bisacodyl 5 mg 01/18/19 21:00 01/19/19 20:57 Dulcolax PO 5 mg 2100 VAL Administration Calcium/Vitamin D 1 tab 01/18/19 09:00 01/20/19 09:27 Caltrate 600 + Vit D PO 1 tab DAILY VAL Administration Clonazepam 1 mg 01/18/19 09:00 01/20/19 09:26 Klonopin PO Not Given DAILY VAL Diclofenac Sodium 75 mg 01/18/19 09:00 01/20/19 09:26 Diclofenac Sodium PO 75 mg BID VAL Administration Duloxetine HCl 60 mg 01/18/19 09:00 01/20/19 09:27 Cymbalta PO 60 mg BID VAL Administration Gabapentin 3,000 mg 01/19/19 09:00 01/20/19 14:49 Neurontin PO 3,000 mg TID VAL Administration Gabapentin 200 mg 01/19/19 09:00 01/20/19 14:50 Neurontin PO 200 mg TID VAL Administration Lisinopril 20 mg 01/18/19 09:00 01/20/19 09:26 Zestril PO 20 mg BID VAL Administration Metoprolol Succinate 100 mg 01/18/19 09:00 01/20/19 09:24 Toprol Xl PO 100 mg BID VAL Administration Minoxidil 2.5 mg 01/18/19 09:00 01/20/19 09:28 Minoxidil PO 2.5 mg BID VAL Administration Nitroglycerin 0.5 inch 01/20/19 14:00 01/20/19 13:01 Nitro-Bid 2% Ointment TOP 0.5 inch Q8HR VAL Administration Pantoprazole Sodium 40 mg 01/18/19 09:00 01/20/19 09:28 Protonix PO 40 mg DAILY VAL Administration Abacavir/ 0 each 01/18/19 09:00 01/20/19 09:21 Dolutegravir/ PO 1 each Lamivudi [Triumeq] DAILY VAL Administration 600/50/300mg Tablet Ranolazine 500 mg 01/18/19 21:00 01/20/19 09:37 Ranexa PO 500 mg BID VAL Administration Rosuvastatin Calcium 10 mg 01/18/19 21:00 01/19/19 20:56 Crestor PO 10 mg 2100 [facility] Administration Sodium Chloride 10 ml 01/18/19 09:00 01/20/19 09:38 Flush - Normal Saline IVF Not Given Q12HR [facility] Tamsulosin HCl 0.4 mg 01/18/19 09:00 01/20/19 09:28 Flomax PO 0.4 mg DAILY VAL Administration Ticagrelor 90 mg 01/18/19 09:00 01/20/19 09:29 Brilinta PO 90 mg BID [facility] Administration - Exam General Appearance: NAD, awake alert Heart: RRR, no murmur, no gallops, no rubs, normal peripheral pulses Respiratory: CTAB, no wheezes, no rales, no ronchi, normal chest expansion, no tachypnea, normal percussion Gastrointestinal: soft, non-tender, non-distended, normal bowel sounds, no palpable masses, no hepatomegaly, no splenomegaly, no bruit Extremities: no cyanosis, no clubbing, no edema Skin: normal turgor, no lesions, no rashes Musculoskeletal: normal tone, normal strength, no muscle wasting Psychiatric: normal affect, normal behavior, A&O x 3 Hosp A/P (1) NSTEMI (non-ST elevated myocardial infarction) Code(s): I21.4 - NON-ST ELEVATION (NSTEMI) MYOCARDIAL INFARCTION Status: Acute (2) CAD (coronary artery disease) Code(s): I25.10 - ATHSCL HEART DISEASE OF [place] CORONARY ARTERY W/O ANG PCTRS Status: Acute Qualifiers: [place] vs. transplanted heart: [place] heart Associated angina: with unstable angina (3) Dyslipidemia Code(s): E78.5 - HYPERLIPIDEMIA, UNSPECIFIED Status: Chronic (4) HIV (human immunodeficiency virus infection) Code(s): B20 - HUMAN IMMUNODEFICIENCY VIRUS [HIV] DISEASE Status: Chronic Qualifiers: HIV symptom status: asymptomatic Qualified Code(s): Z21 - Asymptomatic human immunodeficiency virus [HIV] infection status (5) History of CVA (cerebrovascular accident) Code(s): Z86.73 - PRSNL HX OF TIA (TIA), AND CEREB INFRC W/O RESID DEFICITS Status: Chronic (6) Hypertension Code(s): I10 - ESSENTIAL (PRIMARY) HYPERTENSION Status: Chronic Qualifiers: Hypertension type: essential hypertension Qualified Code(s): I10 - Essential (primary) hypertension - Plan He is doing fine. He understands that the CAD is not amenable to intervention. Changing to Lovenox and nitropaste. Weaning nitro as tolerated. Ranexa. Long discussion with the patient and his sister who is with him today. He wishes to pursue hospice. He does not wish to return to the hospital if symptoms recur. Will consult CM for hospice consult.
[2019-01-20] MEDS: Rosuvastatin 10 MG TAB PO SCH (21:26)
[2019-01-20] MEDS: Bisacodyl 5 MG TAB PO SCH (21:26)
[2019-01-20] MEDS: Enoxaparin Sodium 40 MG/0.4 ML SYRINGE SC SCH (21:27)
[2019-01-20 21:28] VITALS: BP 159/76
[2019-01-21] MEDS: Nitroglycerin 2% Ointment 1 INCH/1 GM Packet TOP SCH (05:46)
[2019-01-21 06:02] VITALS: BMI 27.1
[2019-01-21] MEDS: Gabapentin 300 MG CAP PO SCH (09:02)
[2019-01-21] MEDS: TICAGRELOR 90 MG TABLET PO SCH (09:02)
[2019-01-21] MEDS: Gabapentin 100 MG CAP PO SCH (09:03)
[2019-01-21] MEDS: Tamsulosin HCl 0.4 MG CAP PO SCH (09:04)
[2019-01-21] MEDS: Minoxidil 2.5 MG TAB PO SCH (09:04)
[2019-01-21] MEDS: Acyclovir 400 mg Tablet PO SCH (09:05)
[2019-01-21] MEDS: DULoxetine 60 MG CAP PO SCH (09:05)
[2019-01-21] MEDS: Aspirin 81 mg Enteric Coated Tablet PO SCH (09:05)
[2019-01-21] MEDS: Lisinopril 20 MG TAB PO SCH (09:05)
[2019-01-21] MEDS: Amlodipine 10 MG TAB PO SCH (09:06)
[2019-01-21] MEDS: Ascorbic Acid 500 mg Chewable Tablet PO SCH (09:06)
[2019-01-21] MEDS: Calcium Carbonate + Vit D 1 TAB PO SCH (09:06)
[2019-01-21] MEDS: Enoxaparin Sodium 40 MG/0.4 ML SYRINGE SC SCH (09:07)
[2019-01-21] MEDS: clonazePAM 1 MG TAB PO SCH (09:07)
[2019-01-21] MEDS: LAMIVUDI PO SCH (09:16)
[2019-01-21] MEDS: ABACAVIR PO SCH (09:16)
[2019-01-21] MEDS: DOLUTEGRAVIR PO SCH (09:16)
--- NOTE | 2019-01-21 09:45 | PRG ---
DATE OF SERVICE: 01/21/2019 SUBJECTIVE: This morning, he is awake, alert, responsive. No pain. No shortness of breath. OBJECTIVE: VITAL SIGNS: Blood pressure 117/71, pulse 69, respirations 18, afebrile. CHEST: No wheezing or crackles. CARDIAC: Normal S1 and S2. No gallops. ABDOMEN: No mass. IMPRESSION: Coronary syndrome. No further chest pain. Disposition as per Cardiology. Job ID: [id number]
[2019-01-21 10:27] VITALS: TEMP 97.3
== END 2019-01-21 11:40 | disposition hospice, home (50) | DRG 280 ==
LOC: ERS 18:20 → CCU 20:57
PROVIDERS: ADMIT Internal Medicine; ATTEND Internal Medicine
PROC: 5A09457 Assistance with Respiratory Ventilation, 24-96 Consecutive Hours, Continuous Positive Airway Pressure (ICD-10-PCS; principal; 2019-01-17)
DX: I21.4 Non-ST elevation (NSTEMI) myocardial infarction (principal); J96.01 Acute respiratory failure with hypoxia; I10 Essential (primary) hypertension; G89.29 Other chronic pain; Z66 Do not resuscitate; Z51.5 Encounter for palliative care; R79.89 Other specified abnormal findings of blood chemistry; E78.5 Hyperlipidemia, unspecified; Z21 Asymptomatic human immunodeficiency virus [HIV] infection status; I25.110 Atherosclerotic heart disease of native coronary artery with unstable angina pectoris; Z86.73 Personal history of transient ischemic attack (TIA), and cerebral infarction without residual deficits; Z95.1 Presence of aortocoronary bypass graft; Z90.49 Acquired absence of other specified parts of digestive tract; Z87.891 Personal history of nicotine dependence; Z88.2 Allergy status to sulfonamides
CPT/HCPCS: 36415; 71045; 80048; 80053; 82553; 84484; 85025; 85610; 85730; 86850; 86900; 86901; 93005; 93010; 94660; 96365; 96366; 96375; J1644; J1650; J1940; J2270